=== PATIENT | female | born 1935 | race Caucasian/White ===

== ENCOUNTER 2017-12-28 09:06 | Inpatient (IN) | payer OTHER, BC ==
[2017-12-28] MEDS ORDERED: SODIUM CHLORIDE 0.9% 1000 ML INFUS.BAG IV ONE ×4 (09:48→16:56)
--- NOTE | 2017-12-28 09:48 | PDOC ---
History of Present Illness - General Chief Complaint: Pain, Acute Stated Complaint: N/V/D&ABD.PAIN Time Seen by Provider: 12/28/17 09:28 History Source: Patient Exam Limitations: No Limitations - History of Present Illness Initial Comments: 12/28/17 09:47 The patient is an 82F with a PMH of pancreatitis and bradycardia (s/p pacemaker ) who presents to the ER with complaints of nausea, vomiting, and diarrhea. The patient states that she's had nausea, vomiting, and diarrhea since this morning. She felt in her normal state of health this morning, had her cup of coffee, then had 4-5 episodes of non-bloody, non-watery bowel movements of normal consistency. She also had nausea and NBNB vomiting. She admits to abdominal pain which is suprapubic, sharp/pressure in nature, nonradiating, without dysuria or hematuria. Past History - Past Medical History Allergies/Adverse Reactions: Allergies Allergy/AdvReac Type Severity Reaction Status Date / Time No Known Allergies Allergy Verified 12/28/17 09:09 Home Medications: Ambulatory Orders Aspirin [ASA -] 81 mg PO DAILY 12/28/17 Lisinopril 10 mg PO DAILY 12/28/17 Acetaminophen [Tylenol .Regular Strength -] 650 mg PO Q6H PRN tablet 12/31/17 Ciprofloxacin [Cipro -] 500 mg PO BID 5 Days #10 tablet 12/31/17 Lisinopril [Prinivil] 10 mg PO DAILY tablet 12/31/17 Ondansetron [Zofran -] 8 mg PO Q8H PRN #30 tablet 12/31/17 Ranitidine [Zantac -] 150 mg PO DAILY #30 tablet 12/31/17 - Suicide/Smoking/Psychosocial Hx Smoking History: Former smoker Have you smoked in the past 12 months: No Information on smoking cessation initiated: No Review of Systems - Review of Systems Able to Perform ROS?: Yes Comments:: 12/28/17 10:29 GENERAL/CONSTITUTIONAL: Positive for chills. No fever. No weakness. HEAD, EYES, EARS, NOSE AND THROAT: No change in vision. No ear pain or discharge. No sore throat. CARDIOVASCULAR: No chest pain, palpitations, or lightheadedness. RESPIRATORY: No cough, wheezing, shortness of breath, or hemoptysis. GASTROINTESTINAL: Positive for nausea, vomiting, diarrhea, and abdominal pain. No constipation. GENITOURINARY: No dysuria, frequency, hematuria, or change in urination. MUSCULOSKELETAL: No joint or muscle swelling or pain. No neck or back pain. SKIN: No rash or lesions. NEUROLOGIC: No headache, numbness, tingling, weakness, loss of consciousness, or change in strength/sensation. ENDOCRINE: No increased thirst. No abnormal weight change. HEMATOLOGIC/LYMPHATIC: No anemia, easy bleeding, or history of blood clots. ALLERGIC/IMMUNOLOGIC: No hives or skin allergy. Is the patient limited Guamanian proficient: No *Physical Exam - Vital Signs Last Vital Signs Temp Pulse Resp BP Pulse Ox 97.6 F 56 L 17 118/43 100 12/28/17 09:09 12/28/17 09:09 12/28/17 09:09 12/28/17 09:09 12/28/17 09:09 - Physical Exam Comments: 12/28/17 10:29 GENERAL: Well developed, well nourished. Awake and alert. No acute distress. HEENT: Normocephalic, atraumatic. Hearing grossly normal. Moist mucous membranes. PERRLA, EOMI. No conjunctival pallor. Sclera are non-icteric. NECK: Supple. Full ROM. CARDIOVASCULAR: Regular rate and rhythm. No murmurs, rubs, or gallops. PULMONARY: No evidence of respiratory distress. Lungs clear to auscultation bilaterally. No wheezing, rales or rhonchi. ABDOMINAL: Soft. Tender to deep palpation in suprapubic region. Non-distended. No rebound or guarding. GENITOURINARY: No CVA tenderness bilaterally. MUSCULOSKELETAL: Normal range of motion at all joints. No bony deformities or tenderness. EXTREMITIES: No cyanosis. No clubbing. No edema. No calf tenderness or swelling. SKIN: Warm and dry. Normal capillary refill. No rashes. No jaundice. NEUROLOGICAL: Alert, awake, appropriate. Cranial nerves 2-12 intact. Normal speech. Gait is normal without ataxia. PSYCHIATRIC: Cooperative. Good eye contact. Appropriate mood and affect. Heart Score/ECG Review #1 ECG reviewed & interpreted by me at: 10:53 General ECG Interpretation: Sinus Rhythm, Normal Rate, Normal Intervals, No acute ischemic changes Compared to previous ECG there are: No significant change 12/28/17 11:02 Sinus rhythm w/ atrial paced rhythm Vent rate 56 HI 192 QRS 84 QTc 407 No ED Treatment Course - LABORATORY CBC & Chemistry Diagram: 12/30/17 06:57 12/30/17 06:57 Medical Decision Making - Medical Decision Making 12/28/17 10:30 The patient is an 82F with a PMH of pancreatitis who presents to the ER with acute onset nausea, vomiting, diarrhea. The pt's son endorses that the patient drinks at least 2 glasses of wine/day but the patient denies any epigastric pain and states that this does not feel like her pancreatitis. I will r/o ACS with EKG. Will give fluids and zofran after EKG done to ensure no prolonged QT. Pending labs and EKG. 12/28/17 12:42 Lipase is 476. I am concerned for pancreatitis even though it is not 3X normal limit. Pt has hx of pancreatitis and can have limited lipase elevation 2/2 to pancreatic burnout. I have discussed the patient with Dr. Trujillo who recommends an abdominal US prior to admission. Order placed. Pending US. 12/28/17 17:36 U/S negative. Will admit to hospitalist, pending call back x 2. 12/28/17 17:47 I have endorsed the patient to [facility] for admission under Dr. Harkins. *DC/Admit/Observation/Transfer Diagnosis at time of Disposition: Pancreatitis Qualifiers: Pancreatitis type: unspecified pancreatitis type Acute pancreatitis complication: unspecified - Discharge Dispostion Disposition: HOME Condition at time of disposition: Stable Decision to Admit order: Yes - Prescriptions - Referrals - Patient Instructions - Post Discharge Activity
[2017-12-28 10:23] LABS: BASO % 0.3 % (0-2.0); HEMATOCRIT 35.9 % (32.4-45.2); HEMOGLOBIN 11.9 GM/dL (10.7-15.3); LYMPH % 14.1 % (8-40); MCH 31.9 pg (25.7-33.7); MCHC 33.2 g/dl (32.0-36.0); MEAN CELL VOLUME 96.1 fl (80-96); MEAN PLT VOLUME 8.4 fl (7.5-11.1); MONO % 5.4 % (3.8-10.2); NEUT % 79.2 % (42.8-82.8); PLATELET COUNT 176 K/MM3 (134-434); RBC 3.74 M/mm3 (3.60-5.2); RDW 12.8 % (11.6-15.6); WHITE BLOOD COUNT 11.4 K/mm3 (4.0-10.0)
[2017-12-28 10:43] LABS: ALBUMIN 4.2 g/dl (3.4-5.0); ANION GAP 8 (8-16); BLOOD UREA NITROGEN 29 mg/dL (7-18); CALCIUM 9.9 mg/dL (8.5-10.1); CHLORIDE 111 mmol/L (98-107); CO2 25 mmol/L (21-32); GLUCOSE,RANDOM 149 mg/dL (74-106); POTASSIUM 4.6 mmol/L (3.5-5.1); SODIUM 144 mmol/L (136-145)
[2017-12-28 10:49] LABS: ALK PHOS 76 U/L (45-117); BILIRUBIN,TOTAL 0.6 mg/dL (0.2-1.0); CREATININE 1.4 mg/dL (0.55-1.02); SGOT/AST 25 U/L (15-37); SGPT/ALT 23 U/L (12-78); TOT PROT 7.5 g/dl (6.4-8.2)
[2017-12-28 10:50] LABS: LIPASE 476 U/L (73-393)
--- NOTE | 2017-12-28 12:08 | PDOC ---
Attending Attestation - Resident Resident Name: Martínez Pablo - ED Attending Attestation I have performed the following: I have examined & evaluated the patient, The case was reviewed & discussed with the resident, I agree w/resident's findings & plan - HPI HPI: 12/28/17 12:05 82y/o F h/o pancreatitis, likely etoh induced, p/w abd pain, n/v/d typical of past pancreatitis. no f/c, has likely had increased etoh intake of late. 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 VSS, no peritoneal findings on exam. labs notable for wbc 11.4, Cr 1.4 from baseline 1, lipase 490. ivf, anti-emetic, pain control admission Heart Score/ECG Review #1 ECG reviewed & interpreted by me at: 10:43 General ECG Interpretation: Sinus Rhythm (APCs noted), Normal Rate (56), Normal Intervals (qtc 407), No acute ischemic changes
[2017-12-28 13:04] LABS: URINE APPEARANCE CLEAR; URINE BILIRUBIN NEGATIVE (<2.0 mg/dL); URINE COLOR DKYELLOW; URINE GLUCOSE (UA) NEGATIVE (NEGATIVE); URINE KETONE NEGATIVE (NEGATIVE); URINE LEUK ESTERASE NEGATIVE (NEGATIVE); URINE NITRITE NEGATIVE (NEGATIVE); URINE PROTEIN NEGATIVE (NEGATIVE)
--- NOTE | 2017-12-28 16:29 | EKG ---
Test Reason : Blood Pressure : / mmHG Vent. Rate : 056 BPM Atrial Rate : 056 BPM P-R Int : 192 ms QRS Dur : 084 ms QT Int : 422 ms P-R-T Axes : 091 053 050 degrees QTc Int : 407 ms SINUS BRADYCARDIA PREMATURE ATRIAL COMPLEXES Confirmed by RADHA DEJESUS MD ([id number]) on 12/28/2017 4:29:03 PM Referred By: Confirmed By:RADHA DEJESUS MD
[2017-12-28] MEDS ORDERED: ACETAMINOPHEN 1000 MG/100 ML VIAL (NON FORMULARY) IVPB ONE (16:56)
[2017-12-28] MEDS ORDERED: ACETAMINOPHEN INJECTION 100 ML IVPB ONE (17:03)
--- NOTE | 2017-12-28 18:10 | HP ---
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 PT awoke in her normal fashion, had some coffee and was getting ready to go to [facility] when she vomiting 5 times. No blood noted. She then had palpitations and called her family who brought her to the ED. PT denies fever, chills, sob, diarrhea, chest pain. She recently moved back from [place] in March. No changes to her diet. History Source: Patient Limitations to Obtaining History: No Limitations - Past Medical History Cardiovascular: Yes: HTN - Past Surgical History Past Surgical History: Yes: Permanent Pacemaker - Smoking History Smoking history: Former smoker Have you smoked in the past 12 months: No - Alcohol/Substance Use Hx Alcohol Use: Yes (occasional wine ) History of Substance Use: reports: None - Social History Usual Living Arrangement: Yes: Alone ADL: Independent History of Recent Travel: No Home Medications - Allergies Allergies/Adverse Reactions: Allergies Allergy/AdvReac Type Severity Reaction Status Date / Time No Known Allergies Allergy Verified 12/28/17 09:09 Review of Systems - Review of Systems Constitutional: reports: No Symptoms Eyes: reports: No Symptoms HENT: reports: No Symptoms Neck: reports: No Symptoms Cardiovascular: reports: No Symptoms Respiratory: reports: No Symptoms Gastrointestinal: reports: Abdominal Pain Genitourinary: reports: No Symptoms Musculoskeletal: reports: No Symptoms Integumentary: reports: No Symptoms Neurological: reports: No Symptoms Endocrine: reports: No Symptoms Hematology/Lymphatic: reports: No Symptoms Psychiatric: reports: No Symptoms Physical Examination Vital Signs: Vital Signs Temperature 97.6 F 12/28/17 09:09 Pulse Rate 56 L 12/28/17 09:09 Respiratory Rate 17 12/28/17 09:09 Blood Pressure 118/43 12/28/17 09:09 O2 Sat by Pulse Oximetry (%) 100 12/28/17 09:09 Constitutional: Yes: No Distress Eyes: Yes: Conjunctiva Clear HENT: Yes: Atraumatic Neck: Yes: Supple Cardiovascular: Yes: Regular Rate and Rhythm, Bradycardia Respiratory: Yes: Regular, CTA Bilaterally Gastrointestinal: Yes: Normal Bowel Sounds, Soft, Tenderness (lower abdominal tenderness to palpation and without) Renal/: Yes: WNL Extremities: Yes: WNL Edema: No Peripheral Pulses WNL: Yes Neurological: Yes: Alert, Oriented, Cran Nerves II-XII Intact Psychiatric: Yes: Alert, Oriented Labs: CBC, BMP 12/28/17 10:15 12/28/17 10:15 Imaging - Results Chest X-ray: Report Reviewed, Image Reviewed EKG: Report Reviewed (sinus bradycardia w/ pac) Other: Report Reviewed (us shows no cholelithiasis, acute gillian or biliary duct dilation) Problem List - Problems (1) HTN (hypertension) Code(s): I10 - ESSENTIAL (PRIMARY) HYPERTENSION (2) Bradycardia Code(s): R00.1 - BRADYCARDIA, UNSPECIFIED (3) Pancreatitis Code(s): K85.90 - ACUTE PANCREATITIS WITHOUT NECROSIS OR INFECTION, UNSP Qualifiers: Chronicity: acute Pancreatitis type: unspecified pancreatitis type Acute pancreatitis complication: unspecified Qualified Code(s): K85.90 - Acute pancreatitis without necrosis or infection, unspecified Assessment/Plan Assessment: 82 year old female with pmhx of htn, bradycardia s/p ppm presented with vomiting and abdominal pain Plan: 1. Acute pancreatitis - Continue IVF - Repeat Lipase in AM - If worsens obtain CTAP - NPO - Morphine prn pain 2. HTN - Hold lisinopril 10mg 3. bradycardia - s/p ppm - Asymptomatic - Monitor vitals 4. DVT ppx - Heparin sq Visit type - Emergency Visit Emergency Visit: Yes Care time: The patient presented to the Emergency Department on the above date and was hospitalized for further evaluation of their emergent condition. - New Patient This patient is new to me today: Yes Date on this admission: 12/28/17 - Critical Care Critical Care patient: No Hospitalist Screening - Colonoscopy Questionnaire Colonoscopy Questionnaire: Colonoscopy Questionnaire - Patient: 50 - 75 years old and never had a screening colonoscopy: Unknown History of colon or rectal polyps, or CA: Unknown History of IBD, Crohn's disease or UC: Unknown History of abdominal radiation therapy as a child: Unknown - Relative: 1 with colon or rectal CA, or polyps at age 60 or younger: Unknown Colon or rectal CA diagnosed at age 45 or younger: Unknown Multiple relatives with colon or rectal CA: Unknown - Outcome: Screening Result: Negative Screen
[2017-12-28] MEDS: SODIUM CHLORIDE 1,000 ML IV SCH ×2 (18:20→22:01)
[2017-12-28] MEDS ORDERED: morphine CARPU-JECT 2 MG/1 ML DISP.SYRIN ONE (19:08)
[2017-12-28] MEDS: morphine SULFATE 4 MG/ML VIAL IVPUSH PRN (19:11)
[2017-12-28] MEDS: HEPARIN NA (PORCINE) 5,000 UNITS/ML 1ML VIAL SQ SCH (22:01)
[2017-12-28 23:44] VITALS: BMI 26.3
[2017-12-29] MEDS: morphine SULFATE 4 MG/ML VIAL IVPUSH PRN ×2 (00:26→09:09)
[2017-12-29 07:49] LABS: CHLORIDE 115 mmol/L (98-107); POTASSIUM 3.8 mmol/L (3.5-5.1); SODIUM 144 mmol/L (136-145)
[2017-12-29 07:53] LABS: BASO % 0.2 % (0-2.0); EOS % 0.1 % (0-4.5); HEMATOCRIT 30.1 % (32.4-45.2); MCH 31.6 pg (25.7-33.7); MCHC 33.4 g/dl (32.0-36.0); MEAN CELL VOLUME 94.6 fl (80-96); MEAN PLT VOLUME 9.1 fl (7.5-11.1); MONO % 8.3 % (3.8-10.2); NEUT % 70.4 % (42.8-82.8); PLATELET COUNT 170 K/MM3 (134-434); RBC 3.18 M/mm3 (3.60-5.2); RDW 12.8 % (11.6-15.6); WHITE BLOOD COUNT 11.1 K/mm3 (4.0-10.0)
[2017-12-29 07:56] LABS: ALK PHOS 44 U/L (45-117); ANION GAP 6 (8-16); BILIRUBIN,TOTAL 0.5 mg/dL (0.2-1.0); BLOOD UREA NITROGEN 18 mg/dL (7-18); CALCIUM 7.5 mg/dL (8.5-10.1); CO2 23 mmol/L (21-32); CREATININE 0.9 mg/dL (0.55-1.02); GLUCOSE,RANDOM 114 mg/dL (74-106); LIPASE 112 U/L (73-393); SGOT/AST 16 U/L (15-37); SGPT/ALT 16 U/L (12-78); TOT PROT 5.4 g/dl (6.4-8.2)
[2017-12-29] MEDS: SODIUM CHLORIDE 1,000 ML IV SCH ×2 (09:09→19:31)
[2017-12-29] MEDS: HEPARIN NA (PORCINE) 5,000 UNITS/ML 1ML VIAL SQ SCH ×2 (09:09→22:03)
--- NOTE | 2017-12-29 11:36 | PN ---
Progress Note, Physician Chief Complaint: Feels improved mild epigastric pain History of Present Illness: HTN, Pancreatitis , Pacemaker present with 2 days H//o nausea, vomiting and diarrhea with epigastric pain w/u shows acute pancreatitis. - Current Medication List Current Medications: Active Medications Heparin Sodium (Porcine) (Heparin -) 5,000 unit SQ BID [facility] Last Admin: 12/29/17 09:09 Dose: 5,000 unit Sodium Chloride (Normal Saline -) 1,000 mls @ 83 mls/hr IV ASDIR TARSHA Last Admin: 12/29/17 09:09 Dose: 83 mls/hr Morphine Sulfate (Morphine Sulfate) 1 mg IVPUSH Q4H PRN PRN Reason: PAIN LEVEL 1-5 Last Admin: 12/29/17 09:09 Dose: 1 mg - Objective Vital Signs: Vital Signs Temperature 99.4 F 12/29/17 05:37 Pulse Rate 58 L 12/29/17 05:37 Respiratory Rate 18 12/29/17 05:37 Blood Pressure 139/57 12/29/17 05:37 O2 Sat by Pulse Oximetry (%) 98 12/29/17 02:16 Elderly F comfortable mild epigastric pain HEENT: mm moist no anemia, no jvd, eomi NECK: No JVD, No Bruit CHEST: Minimal Basal crepts CVS: S1S2 IR no m/g/r ABD : No Distention, Mild tender Bs + EXT: B/L LE Edema VISUAL ARTS TEACHER: AOx3 non focal Labs: CBC, BMP 12/29/17 06:00 12/29/17 06:00 Problem List - Problems (1) Pancreatitis Assessment/Plan: Mild abd ultrasound normal , now improved advance Po intake Code(s): K85.90 - ACUTE PANCREATITIS WITHOUT NECROSIS OR INFECTION, UNSP Qualifiers: Pancreatitis type: unspecified pancreatitis type Acute pancreatitis complication: unspecified (2) HTN (hypertension) Assessment/Plan: Well controlled cont all home meds Code(s): I10 - ESSENTIAL (PRIMARY) HYPERTENSION (3) Diarrhea Assessment/Plan: Resolved CBC stable Code(s): R19.7 - DIARRHEA, UNSPECIFIED (4) Nausea and vomiting Assessment/Plan: Resolved cont Zofran and PPI PRN Code(s): R11.2 - NAUSEA WITH VOMITING, UNSPECIFIED (5) Bradycardia Assessment/Plan: S/P Pacemaker Code(s): R00.1 - BRADYCARDIA, UNSPECIFIED
[2017-12-29] MEDS ORDERED: ONDANSETRON 4 MG/2 ML VIAL IVPUSH PRN (11:57)
[2017-12-29] MEDS: PANTOPRAZOLE SODIUM 40 MG VIAL IVPUSH SCH (14:02)
--- NOTE | 2017-12-29 15:51 | CON.GI ---
Consult Consult Specialty:: Gastroenterology Referred by:: Dr. Harkins Reason for Consultation:: Abdominal pain, vomiting and diarrhea - History of Present Illness Chief Complaint: Abrupt onset abdominal pain with vomitnig and diarrhea yesterday morning. History of Present Illness: 82F developed periumbilical pain with vomiting and diarrhea about an hour after eating a piece of toast and coffee yesterday morning. The pain has resolved. Her sonogram is unremarkable. NO gallstones. Her lipase was elevated to >400 but LFTs are WNL. She tells me that she had an episode of pancreatitis in [place] in 2016. She does not recall the etiology. She does drink wine about twice a week. She also describes having GI bleeding on 2016 in [place] that led to the transfusion of 3 units of PRBCs and to upper and lower endoscopies. The bleeding was attributed to a medication which she cannot name. She denies seeing blood in her vomitus or diarrhea. She denies any FH of malignancy. She tells me that she was diagnosed with hemachromatosis that led to phlebotomies in the past. Her daughter and brother have hemochromatosis. Another brother had esophageal cancer. She believes that she had polyps removed during colonoscopy remotely but not n 2016. - History Source History Provided By: Patient Limitations to Obtaining History: No Limitations - Past Medical History Cardio/Vascular: Yes: HTN, Other (PPM placed for bradycardia) Gastrointestinal: Yes: GI Bleed (2016 attributed to a drug. Had transfusions, EGD and colonoscopy), Pancreatitis, Other (colon polyps remotely) Reproductive: Yes: Fibroids (s/p TAHBSO- vaginal) Heme/Onc: Yes: Hemochromatosis - Past Surgical History Past Surgical History: Yes: Cataract Removal, Hysterectomy (transvaginal TAHBSO for fibroids), Permanent Pacemaker - Alcohol/Substance Use Hx Alcohol Use: Yes (occasional wine ) History of Substance Use: reports: None - Smoking History Smoking history: Former smoker Have you smoked in the past 12 months: No If you are a former smoker, when did you quit?: 40 years ago - Social History Usual Living Arrangement: Alone ADL: Independent Occupation: former therapy asst for disabled Place of : Other ([place]) Came to [place]year[place] in her 20's History of Recent Travel: No Home Medications - Allergies Allergies/Adverse Reactions: Allergies Allergy/AdvReac Type Severity Reaction Status Date / Time No Known Allergies Allergy Verified 12/28/17 09:09 - Home Medications Home Medications: Ambulatory Orders Aspirin [ASA -] 81 mg PO DAILY 12/28/17 Lisinopril 10 mg PO DAILY 12/28/17 Family Disease History - Family Disease History Family Disease History: CA: Brother (esophageal cancer, hemochromatosis), Other : Father ( 83 CHF), Mother ( 92 - had pernicious anemia), Daughter ( hemochromatosis) Review of Systems - Review of Systems Constitutional: reports: Weakness Eyes: reports: No Symptoms HENT: reports: No Symptoms Neck: reports: No Symptoms Cardiovascular: reports: No Symptoms Respiratory: reports: No Symptoms Gastrointestinal: reports: Abdominal Pain, Diarrhea, Vomiting Genitourinary: reports: No Symptoms Musculoskeletal: reports: No Symptoms Physical Exam-GI Vital Signs: Vital Signs Temperature 98 F 12/29/17 14:20 Pulse Rate 65 12/29/17 14:20 Respiratory Rate 20 12/29/17 14:20 Blood Pressure 143/60 12/29/17 14:20 O2 Sat by Pulse Oximetry (%) 98 12/29/17 09:00 CBC,CMP WBC 11.1 K/mm3 (4.0-10.0) H 12/29/17 06:00 RBC 3.18 M/mm3 (3.60-5.2) L 12/29/17 06:00 Hgb 10.0 GM/dL (10.7-15.3) L D 12/29/17 06:00 Hct 30.1 % (32.4-45.2) L D 12/29/17 06:00 MCV 94.6 fl (80-96) 12/29/17 06:00 MCH 31.6 pg (25.7-33.7) 12/29/17 06:00 MCHC 33.4 g/dl (32.0-36.0) 12/29/17 06:00 RDW 12.8 % (11.6-15.6) 12/29/17 06:00 Plt Count 170 K/MM3 (134-434) 12/29/17 06:00 MPV 9.1 fl (7.5-11.1) 12/29/17 06:00 Neutrophils % 70.4 % (42.8-82.8) 12/29/17 06:00 Lymphocytes % 21.0 % (8-40) D 12/29/17 06:00 Monocytes % 8.3 % (3.8-10.2) 12/29/17 06:00 Eosinophils % 0.1 % (0-4.5) D 12/29/17 06:00 Basophils % 0.2 % (0-2.0) 12/29/17 06:00 Nucleated RBC % 0 % (0-0) 12/29/17 06:00 Sodium 144 mmol/L (136-145) 12/29/17 06:00 Potassium 3.8 mmol/L (3.5-5.1) 12/29/17 06:00 Chloride 115 mmol/L (98-107) H 12/29/17 06:00 Carbon Dioxide 23 mmol/L (21-32) 12/29/17 06:00 Anion Gap 6 (8-16) L 12/29/17 06:00 BUN 18 mg/dL (7-18) 12/29/17 06:00 Creatinine 0.9 mg/dL (0.55-1.02) 12/29/17 06:00 Creat Clearance w eGFR 59.65 (>60) 12/29/17 06:00 Random Glucose 114 mg/dL (74-106) H 12/29/17 06:00 Calcium 7.5 mg/dL (8.5-10.1) L 12/29/17 06:00 Total Bilirubin 0.5 mg/dL (0.2-1.0) 12/29/17 06:00 AST 16 U/L (15-37) 12/29/17 06:00 ALT 16 U/L (12-78) 12/29/17 06:00 Alkaline Phosphatase 44 U/L (45-117) L 12/29/17 06:00 Total Protein 5.4 g/dl (6.4-8.2) L 12/29/17 06:00 Albumin 3.0 g/dl (3.4-5.0) L 12/29/17 06:00 Lipase 112 U/L (73-393) 12/29/17 06:00 Current Medications Generic Name Dose Route Start Last Admin Trade Name Freq PRN Reason Stop Dose Admin Aspirin 81 mg 12/30/17 10:00 Asa - PO DAILY TARSHA Heparin Sodium (Porcine) 5,000 unit 12/28/17 22:00 12/29/17 09:09 Heparin - SQ 5,000 unit BID TARSHA Administration Sodium Chloride 1,000 mls @ 83 mls/hr 12/28/17 18:30 12/29/17 09:09 Normal Saline - IV 83 mls/hr ASDIR TARSHA Administration Lisinopril 10 mg 12/30/17 10:00 Prinivil PO DAILY TARSHA Ondansetron HCl 4 mg 12/29/17 11:57 Zofran Injection IVPUSH Q6H PRN NAUSEA Pantoprazole Sodium 40 mg 12/29/17 12:15 12/29/17 14:02 Protonix Iv IVPUSH 40 mg DAILY TARSHA Administration Constitutional: Yes: Calm Eyes: Yes: Conjunctiva Clear HENT: Yes: Atraumatic Neck: Yes: Trachea Midline Cardiovascular: Yes: Regular Rate and Rhythm (with left sided PPM), Murmur ( early RAMESH at base) Respiratory: Yes: CTA Bilaterally Gastrointestinal Inspection: Yes: Distention ...Auscultate: Yes: Normoactive Bowel Sounds ...Palpate: Yes: Soft, Other (nontender) ...Percussion: Yes: Tympanitic ...Rectal Exam: Yes: Guaiac Positive (brown soft but guaiac positive stool) Edema: No Peripheral Pulses WNL: Yes Neurological: Yes: Alert, Oriented Labs: CBC, BMP 12/29/17 06:00 12/29/17 06:00 Imaging - Results Ultrasound: Report Reviewed (Rocio Renee Name: [facility] DEPARTMENT OF RADIOLOGY Phys: Martínez Pablo RESIDENT : 1935 Age: 82 Sex: F [facility] Acct: [id number] Loc: [address] Exam Date: 12/28/17 Status: [place] [address] Unit Number: [id number] EXAM#: TYPE/EXAM: RESULT: [id number] US/ABDOMEN US INDICATION: Epigastric pain. TECHNIQUE: Real-time grayscale and color Doppler sonogram of the abdomen was performed by the technologist. Spectral Doppler was utilized to evaluate the portal vein. Images are submitted for review. COMPARISON: None available. FINDINGS: The liver is normal size measuring 16.5 cm in length with normal hepatic echotexture. No discrete hepatic mass identified. The portal vein is patent, where imaged, with hepatopedal flow. The gallbladder is not pathologically distended. No evidence of cholelithiasis, gallbladder wall thickening or pericholecystic fluid. There is no evidence of intrahepatic or extrahepatic biliary ductal dilatation. A proximally extrahepatic bile duct measures 3 mm in diameter. The visualized portions of the pancreas are grossly unremarkable. The spleen is small size measuring 5.2 x 6.0 x 3.9 cm, otherwise unremarkable. The kidneys are normal size with normal cortical echotexture. The right kidney measures 9.4 cm and the left kidney measures 9.3 cm in length. No hydronephrosis or shadowing intrarenal calculus identified. CT is more sensitive in detecting small renal calculi. The visualized portions of the abdominal aorta are normal caliber with calcific atherosclerosis. The intrahepatic IVC is patent. No free fluid identified in the right upper quadrant of the abdomen. IMPRESSION: No evidence of cholelithiasis, acute cholecystitis or biliary ductal dilatation. Reported By: Clarissa Sanchez DO 12/28/17 1626 Martínez Pablo Technologist: Kwabena Kaur Transcribed Date/Time: 12/28/171625 Polysomnographic Technician: Clarissa Sanchez DO Printed Date/Time: By: Signed by: Clarissa Sanchez Signed on: 28-Dec-2017 16:26) Problem List - Problems (1) Abdominal pain Assessment/Plan: The constellation of N/V and diarrhea with rapid resolution is more suggestive of an acute viral gastroenteritis than pancreatitis but given her past h/o pancreatitis and regular alcohol usage chronic pancreatitis with a flare cannot be excluded. Will order CT scan to look for evidence of chromic pancreatitis such as calcificatyion and to exclude a pseudocyst. This will also provide a better screening for a liver neoplasm given her history of hemochromatosis. I will stop her morphine as her pain has resolved and advance her diet. Code(s): R10.9 - UNSPECIFIED ABDOMINAL PAIN (2) Nausea and vomiting Code(s): R11.2 - NAUSEA WITH VOMITING, UNSPECIFIED (3) Diarrhea Code(s): R19.7 - DIARRHEA, UNSPECIFIED (4) Pancreatitis Code(s): K85.90 - ACUTE PANCREATITIS WITHOUT NECROSIS OR INFECTION, UNSP Qualifiers: Pancreatitis type: unspecified pancreatitis type Acute pancreatitis complication: unspecified (5) GI bleed Assessment/Plan: Jill has occult bleeding that may reflect anal irritation from her diarrhea. She describes having had EGD and colonoscopy as recently as 2016 but unfortunately cannot soccer coach specifics. Would empirically treat with a PPI to protect against aspirin induced erosions and ulcers. I gave her my business card to followup as an outpatient for possible repeat endoscopies after obtaining her [place] records. If her Hb continues to drop may need to undertake this during this hospitalization. Code(s): K92.2 - GASTROINTESTINAL HEMORRHAGE, UNSPECIFIED
[2017-12-29] MEDS ORDERED: ACETAMINOPHEN 325 MG TABLET (FP) PO PRN (17:40)
[2017-12-30 08:02] LABS: BASO % 0.3 % (0-2.0); EOS % 1.2 % (0-4.5); HEMATOCRIT 28.3 % (32.4-45.2); HEMOGLOBIN 9.5 GM/dL (10.7-15.3); LYMPH % 22.6 % (8-40); MCH 31.7 pg (25.7-33.7); MCHC 33.4 g/dl (32.0-36.0); MEAN CELL VOLUME 94.7 fl (80-96); MONO % 10.6 % (3.8-10.2); NEUT % 65.3 % (42.8-82.8); PLATELET COUNT 131 K/MM3 (134-434); RBC 2.99 M/mm3 (3.60-5.2); RDW 12.9 % (11.6-15.6); WHITE BLOOD COUNT 11.3 K/mm3 (4.0-10.0)
[2017-12-30 08:24] LABS: CHLORIDE 113 mmol/L (98-107); POTASSIUM 3.5 mmol/L (3.5-5.1); SODIUM 144 mmol/L (136-145)
[2017-12-30 08:49] LABS: ALBUMIN 2.8 g/dl (3.4-5.0); ALK PHOS 45 U/L (45-117); ANION GAP 9 (8-16); BILIRUBIN,TOTAL 0.4 mg/dL (0.2-1.0); BLOOD UREA NITROGEN 12 mg/dL (7-18); CALCIUM 7.6 mg/dL (8.5-10.1); CO2 22 mmol/L (21-32); CREATININE 0.8 mg/dL (0.55-1.02); GLUCOSE,RANDOM 84 mg/dL (74-106); LIPASE 135 U/L (73-393); SGOT/AST 14 U/L (15-37); SGPT/ALT 14 U/L (12-78); TOT PROT 5.2 g/dl (6.4-8.2)
[2017-12-30] MEDS: LISINOPRIL 10 MG TABLET (FP) PO SCH (10:33)
[2017-12-30] MEDS: ASPIRIN 81 MG CHEWABLE TABLETS PO SCH (10:33)
[2017-12-30] MEDS: PANTOPRAZOLE SODIUM 40 MG VIAL IVPUSH SCH (10:33)
[2017-12-30] MEDS: HEPARIN NA (PORCINE) 5,000 UNITS/ML 1ML VIAL SQ SCH ×2 (10:33→21:43)
--- NOTE | 2017-12-30 15:01 | PN ---
Progress Note, Physician Chief Complaint: Tolerating PO mild lower abd pain History of Present Illness: HTN, Pancreatitis , Pacemaker present with 2 days H//o nausea, vomiting and diarrhea with epigastric pain w/u shows acute pancreatitis. tolerating PO awaiting CT abdomen - Current Medication List Current Medications: Active Medications Acetaminophen (Tylenol -) 650 mg PO Q6H PRN PRN Reason: PAIN LEVEL 1-5 Last Admin: 12/29/17 22:02 Dose: 650 mg Aspirin (Asa -) 81 mg PO DAILY [facility] Last Admin: 12/30/17 10:33 Dose: 81 mg Heparin Sodium (Porcine) (Heparin -) 5,000 unit SQ BID [facility] Last Admin: 12/30/17 10:33 Dose: 5,000 unit Sodium Chloride (Normal Saline -) 1,000 mls @ 83 mls/hr IV ASDIR [facility] Last Admin: 12/29/17 19:31 Dose: Not Given Lisinopril (Prinivil) 10 mg PO DAILY [facility] Last Admin: 12/30/17 10:33 Dose: 10 mg Ondansetron HCl (Zofran Injection) 4 mg IVPUSH Q6H PRN PRN Reason: NAUSEA Pantoprazole Sodium (Protonix Iv) 40 mg IVPUSH DAILY [facility] Last Admin: 12/30/17 10:33 Dose: 40 mg - Objective Vital Signs: Vital Signs Temperature 98 F 12/30/17 09:00 Pulse Rate 59 L 12/30/17 09:00 Respiratory Rate 16 12/30/17 09:00 Blood Pressure 118/67 12/30/17 09:00 O2 Sat by Pulse Oximetry (%) 99 12/30/17 09:00 Elderly F comfortable mild epigastric pain HEENT: mm moist no anemia, no jvd, eomi NECK: No JVD, No Bruit CHEST: Minimal Basal crepts CVS: S1S2 IR no m/g/r ABD : No Distention, Mild tender Bs + EXT: B/L LE Edema [employer] COORDINATOR: AOx3 non focal Labs: CBC, BMP 12/30/17 06:57 12/30/17 06:57 - ....Imaging Ultrasound: Report Reviewed (No CBD stone) Problem List - Problems (1) Pancreatitis Assessment/Plan: Mild abd ultrasound normal , now improved advance Po intake awaiting CT scan abdomen. Code(s): K85.90 - ACUTE PANCREATITIS WITHOUT NECROSIS OR INFECTION, UNSP Qualifiers: Pancreatitis type: unspecified pancreatitis type Acute pancreatitis complication: unspecified (2) HTN (hypertension) Assessment/Plan: Well controlled cont all home meds Code(s): I10 - ESSENTIAL (PRIMARY) HYPERTENSION (3) Diarrhea Assessment/Plan: Resolved CBC stable Code(s): R19.7 - DIARRHEA, UNSPECIFIED (4) Nausea and vomiting Assessment/Plan: Resolved cont Zofran and PPI PRN Code(s): R11.2 - NAUSEA WITH VOMITING, UNSPECIFIED (5) Bradycardia Assessment/Plan: S/P Pacemaker Code(s): R00.1 - BRADYCARDIA, UNSPECIFIED (6) Colitis Assessment/Plan: Ct shows collitis of Transverse colon will start on Po Ciprofloxacoin 500 mg BID as patient has elevated TWBC. Code(s): K52.9 - NONINFECTIVE GASTROENTERITIS AND COLITIS, UNSPECIFIED (7) SHERRY (iron deficiency anemia) Assessment/Plan: Patient has SHERRY needs further evaluation as out patient stool occult blood -ve reported by GI consult. Code(s): D50.9 - IRON DEFICIENCY ANEMIA, UNSPECIFIED
[2017-12-31 09:31] VITALS: BP 141/62; PULSE 52; TEMP 98
[2017-12-31] MEDS: ASPIRIN 81 MG CHEWABLE TABLETS PO SCH (10:57)
[2017-12-31] MEDS: HEPARIN NA (PORCINE) 5,000 UNITS/ML 1ML VIAL SQ SCH (10:57)
[2017-12-31] MEDS: PANTOPRAZOLE SODIUM 40 MG VIAL IVPUSH SCH (10:57)
[2017-12-31] MEDS: LISINOPRIL 10 MG TABLET (FP) PO SCH (10:57)
[2017-12-31] MEDS ORDERED: CIPROFLOXACIN 500 MG TABLET (RESTRICTED TO ID) PO SCH (11:30)
[2017-12-31] MEDS ORDERED: ONDANSETRON 4 MG TABLET PO PRN (11:37)
--- NOTE | 2017-12-31 11:43 | DS ---
Physical Examination Vital Signs: Vital Signs Temperature 98 F 12/31/17 09:29 Pulse Rate 52 L 12/31/17 09:29 Respiratory Rate 16 12/31/17 09:29 Blood Pressure 141/62 12/31/17 09:29 O2 Sat by Pulse Oximetry (%) 97 12/30/17 20:59 Elderly F feels comfortable no c/o nausea, vomiting or diarrhea HEENT: Mm moist, no anemia, PERRLA EOMI NECK: No JVD No Bruit CHEST: CTA B/L CVS; S1S2 R ABD: Soft mild colonic tenderness Bs + EXT: No edema feet,, no calf tenderness [employer] HELPER; AOx3 non focal Labs: CBC, BMP 12/30/17 06:57 12/30/17 06:57 Discharge Summary Reason For Visit: PANCREATITIS, Collitis Current Active Problems Abdominal pain (Acute) Diarrhea (Acute) Collitis HTN (hypertension) (Acute) Nausea and vomiting (Acute) Pancreatitis (Acute) Hospital Course: HTN, Pancreatitis , Pacemaker present with 2 days H//o nausea, vomiting and diarrhea with epigastric pain w/u shows acute pancreatitis. tolerating PO, CT abdomen shows transverse colitis, abd ultrasound shows no gall stone normal CBD , blood w/u shows -ve tumor markers and SHERRY, stool occult blood -ve, patient needs F/U with GI for EGD and possible collitis. Condition: Stable - Instructions Diet, Activity, Other Instructions: as advised advance as tolerates Referrals: Gabe Ramos MD [Staff Physician] - 2 Weeks Pierre Harkins MD [Primary Care Provider] - 1 Week - Home Medications Comprehensive Discharge Medication List: Ambulatory Orders Aspirin [ASA -] 81 mg PO DAILY 12/28/17 Lisinopril 10 mg PO DAILY 12/28/17 Acetaminophen [Tylenol .Regular Strength -] 650 mg PO Q6H PRN tablet 12/31/17 Ciprofloxacin [Cipro -] 500 mg PO BID 5 Days #10 tablet 12/31/17 Lisinopril [Prinivil] 10 mg PO DAILY tablet 12/31/17 Ranitidine [Zantac -] 150 mg PO DAILY #30 tablet 12/31/17
[2018-01-01] MEDS ORDERED: RANITIDINE HCL 150 MG TABLET (FP) PO SCH (10:00)
== END 2017-12-31 13:38 | disposition home or self-care (01) | DRG 391 ==
LOC: JER 09:06 → JERBED 17:47 → J7W 21:43
PROVIDERS: ADMIT Internal Medicine; ATTEND Internal Medicine
DX: K52.9 Noninfective gastroenteritis and colitis, unspecified (principal); K85.90 Acute pancreatitis without necrosis or infection, unspecified; R00.1 Bradycardia, unspecified; R10.9 Unspecified abdominal pain; I10 Essential (primary) hypertension; R11.2 Nausea with vomiting, unspecified; D50.9 Iron deficiency anemia, unspecified; Z95.0 Presence of cardiac pacemaker
CPT/HCPCS: 36415; 71045-TC-FY; 74177-TC; 76700-TC; 80048; 80053; 81003; 82105; 82150; 82728; 83540; 83550; 83690; 85025; 85044; 86140; 86301; 87086; 93005; 93010; 99282-25; J0131; J1644; J7030

== ENCOUNTER 2019-01-31 20:48 | Emergency (ER) | payer OTHER, BC ==
--- NOTE | 2019-01-31 21:05 | PDOC ---
Rapid Medical Evaluation Chief Complaint: Pain, Acute Time Seen by Provider: 01/31/19 21:01 Medical Evaluation: Allergies Allergy/AdvReac Type Severity Reaction Status Date / Time No Known Allergies Allergy Verified 12/28/17 09:09 01/31/19 21:01 I have performed a brief in-person evaluation of this patient. The patient presents with a chief complaint of: left lower leg pain x 2-3 days, worsening. Has had intermittant pain and discoloration for many yrs, but was concerned about a clot - no history of same Pertinent physical exam findings: mild tenderness and discoloration , no swelling , no homans. I have ordered the following: nothing The patient will proceed to the ED for further evaluation. Discharge Disposition - Diagnosis Leg pain - Referrals - Patient Instructions - Post Discharge Activity
--- NOTE | 2019-01-31 21:13 | PDOC ---
History of Present Illness - General Chief Complaint: Pain, Acute Stated Complaint: L/LEG/PAIN Time Seen by Provider: 01/31/19 21:01 - History of Present Illness Initial Comments: 01/31/19 21:25 The patient is an 83 year old female with a PMH of bradycardia (s/p PPM) who presents to our ED c/o RLE pain. Pain is sharp, intermittent and has been occurring for 1 year. Denies any h/o known trauma. No increased edema, ambulatory. States pain became particularly severe earlier today prompting her visit to our ED because she was scared she had a clot. Evaluated by her PMD on Monday and was told all of her labs were normal. Surgical: Hysterectomy, PPM placement Social: former smoker PMD: Dr. Mark Harkins M.D. Past History - Past Medical History Allergies/Adverse Reactions: Allergies Allergy/AdvReac Type Severity Reaction Status Date / Time No Known Allergies Allergy Verified 12/28/17 09:09 Home Medications: Ambulatory Orders Aspirin [ASA -] 81 mg PO DAILY 12/28/17 Lisinopril 10 mg PO DAILY 12/28/17 Acetaminophen [Tylenol .Regular Strength -] 650 mg PO Q6H PRN tablet 12/31/17 Ciprofloxacin [Cipro -] 500 mg PO BID 5 Days #10 tablet 12/31/17 Lisinopril [Prinivil] 10 mg PO DAILY tablet 12/31/17 Ondansetron [Zofran -] 8 mg PO Q8H PRN #30 tablet 12/31/17 Ranitidine [Zantac -] 150 mg PO DAILY #30 tablet 12/31/17 COPD: No HTN: Yes Other medical history: anemia - Suicide/Smoking/Psychosocial Hx Smoking History: Former smoker Have you smoked in the past 12 months: No If you are a former smoker, when did you quit?: 40 years ago Information on smoking cessation initiated: No Hx Alcohol Use: Yes (occasional wine ) Substance Use Type: None Review of Systems - Review of Systems Constitutional: No: Chills, Fever HEENTM: No: Recent change in vision Respiratory: No: Cough, Shortness of Breath Cardiac (ROS): No: Chest Pain, Lightheadedness, Palpitations, Syncope ABD/GI: No: Constipated, Diarrhea, Nausea, Vomiting : No: Burning, Dysuria *Physical Exam - Vital Signs Last Vital Signs Temp Pulse Resp BP Pulse Ox 98.5 F 63 18 124/68 97 01/31/19 21:04 01/31/19 21:04 01/31/19 21:04 01/31/19 21:04 01/31/19 21:04 - Physical Exam Comments: 01/31/19 21:30 Awake, alert, well appearing/NAD CV: S1, S2, RRR Respiratory: CLTA B/L, no wheeze/crackle Abdomen: soft, non-tender, (+) bowel sounds Extremity: 2+ DP pulse, no edema, moves all 4 extremities w/o pain Neuro: A&O x3, CN II-XII intact, normal sensation Medical Decision Making - Medical Decision Making 01/31/19 21:26 83 year old female with LLE pain that has been occuring intermittently for 1 year VS unremarkable No lower extremity edema, negative Illly's sign Will obtain RLE Duplex to r/o DVT. Reassess. Likely disposition is home. 01/31/19 22:37 U/S negative for DVT. Will discharge home with return precautions. 01/31/19 22:42 Patient reassessed @ bedside. Ambulatory and improved. Counseled on importance of PMD evaluation for [facility] pain management. I discussed the physical exam findings, ancillary test results and final diagnoses with the patient. I answered all of the patient's questions. The patient was satisfied with the care received and felt comfortable with the discharge plan and treatment plan. The patient will return to the Emergency Department with any new, persistent or worsening symptoms. *DC/Admit/Observation/Transfer Diagnosis at time of Disposition: Leg pain - Discharge Dispostion Disposition: HOME Condition at time of disposition: Good Decision to Admit order: No - Referrals Referrals: Pierre Harkins MD [Primary Care Provider] - - Patient Instructions Printed Discharge Instructions: DI for Leg Pain Additional Instructions: You can take Motrin (up to 3200 mg daily) alternating with Tylenol (up to 4000 mg daily) for your pain for 1 week. Follow up with your primary care doctor in the next 1 week. Your care is not complete until you are evaluated by your primary care doctor. Return to the Emergency Department for any new/worsening/concerning symptoms. - Post Discharge Activity
[2019-01-31 21:14] VITALS: BP 124/68; PULSE 63; TEMP 98.5; BMI 23.9
[2019-01-31] MEDS ORDERED: ACETAMINOPHEN 500 MG TABLET (FP) PO ONE (21:25)
[2019-01-31] MEDS ORDERED: ACETAMINOPHEN 325 MG TABLET (FP) ONE (21:31)
--- NOTE | 2019-01-31 22:31 | PDOC ---
Documentation entered by Sb Ocampo SCRIBE, acting as scribe for Lizzeth Judge DO. Lizzeth Judge DO: This documentation has been prepared by the Terrence willoughby Daniel, SCRIBE, under my direction and personally reviewed by me in its entirety. I confirm that the documentation accurately reflects all work, treatment, procedures, and medical decision making performed by me. Attending Attestation - Resident Resident Name: Cat Oden - ED Attending Attestation I have performed the following: I have examined & evaluated the patient, The case was reviewed & discussed with the resident, I agree w/resident's findings & plan, Exceptions are as noted - HPI HPI: 01/31/19 21:46 The patient is an 83 year old female with a past medical history of anemia and bradycardia (s/p pacemaker) here today for evaluation of left lower extremity pain. The patient reports that she has had chronic left lower leg pain with discoloration for a while and came in today due to the pain worsening. She states it is worse with activity, constantly feels warm, and notes intermittent edema. Patient also reports shortness of breath but states that this chronic and has not changed. Patient denies headache, lightheadedness. Denies fever, chills. Denies chest pain. Denies nausea, vomiting, diarrhea, abdominal pain. Allergies: NKA PCP: Pierre Harkins - Physicial Exam PE: 01/31/19 22:24 Constitutional: Awake, alert, oriented. No acute distress. Head: Normocephalic. Atraumatic Eyes: PERRL. EOMI. Conjunctivae are not pale. ENT: Mucous membranes are moist and intact. Posterior pharynx without exudates or erythema. Uvula midline. Neck: Supple. Full ROM. No lymphadenopathy. Cardiovascular: Regular rate. Regular rhythm. S1, S2 regular. Distal pulses are 2+ and symmetric. Pulmonary/Chest: No evidence of respiratory distress. Clear to auscultation bilaterally No wheezing, rales or rhonchi. Abdominal: Soft and non-distended. There is no tenderness. No rebound, guarding or rigidity. No organomegaly. No palpable masses. Good bowel sounds. Back: No CVA tenderness. Musculoskeletal: No edema. No cyanosis. No clubbing. No C, T, or L spine tenderness. Full range of motion in all extremities. No calf tenderness. Radial /pedal pulses are intact and 2+ bilaterally Skin: Skin is warm and dry. No petechiae. No purpura. Neurological: Alert and oriented to person, place, and time. Cranial nerves II -XII are grossly intact. Normal speech. Strength is grossly symmetric. No sensory deficits. Psychiatric: Good eye contact. Normal interaction, affect and behavior. - Medical Decision Making 01/31/19 22:29 a/p: 83yo female with 1 year hx of L calf pain - concerned she may have a blood clot -pt states her mother had a blood clot in her L leg -pt denies swelling, no redness, no fevers/chills -no cp/sob -pt states she follows with Dr. Harkins and has been intermittently taking aleve for the pain -had pain today - pt states she took an aleve, which helped her pain -no rashes -no back pain -states intermittent sharp pain, sometimes at rest and sometimes when walking - no signs of claudication - no blue or purple coloration, foot and leg never become cold -will send for duplex ultrasound -will monitor and reassess 01/31/19 22:31 no dvt visualized stable for dc to home and follow up with PMD for further evaluation of the L leg pain
== END 2019-01-31 22:50 | disposition home or self-care (01) ==
LOC: JER 20:48
DX: M79.662 Pain in left lower leg (principal); I10 Essential (primary) hypertension; Z86.2 Personal history of diseases of the blood and blood-forming organs and certain disorders involving the immune mechanism; R00.1 Bradycardia, unspecified; Z95.0 Presence of cardiac pacemaker
CPT/HCPCS: 93971-TC; 99281-25

== ENCOUNTER 2019-04-03 09:37 | Observation (INO) | payer OTHER, BC ==
[2019-04-03 10:40] LABS: BASO % 0.5 % (0-2.0); EOS % 1.9 % (0-4.5); HEMOGLOBIN 11.1 GM/dL (10.7-15.3); LYMPH % 35.2 % (8-40); MCH 31.9 pg (25.7-33.7); MCHC 33.5 g/dl (32.0-36.0); MEAN CELL VOLUME 95.2 fl (80-96); MEAN PLT VOLUME 8.4 fl (7.5-11.1); MONO % 11.3 % (3.8-10.2); NEUT % 51.1 % (42.8-82.8); PLATELET COUNT 221 K/MM3 (134-434); RBC 3.47 M/mm3 (3.60-5.2); WHITE BLOOD COUNT 7.7 K/mm3 (4.0-10.0)
[2019-04-03 11:12] LABS: INR 1.04 (0.83-1.09); PROTHROMBIN TIME (PATIENT) 12.3 SEC (9.7-13.0)
[2019-04-03 11:17] LABS: ALBUMIN 3.8 g/dl (3.4-5.0); ALK PHOS 52 U/L (45-117); ANION GAP 9 MMOL/L (8-16); BILIRUBIN,TOTAL 0.3 mg/dL (0.2-1); BLOOD UREA NITROGEN 39.6 mg/dL (7-18); CALCIUM 9.4 mg/dL (8.5-10.1); CHLORIDE 109 mmol/L (98-107); CO2 21 mmol/L (21-32); CREATININE 1.5 mg/dL (0.55-1.3); GLUCOSE,RANDOM 97 mg/dL (74-106); N-TERMINAL BNP 2405.4 pg/ml (5-450); POTASSIUM 4.4 mmol/L (3.5-5.1); SGOT/AST 16 U/L (15-37); SGPT/ALT 18 U/L (13-61); SODIUM 140 mmol/L (136-145); TOT PROT 6.7 g/dl (6.4-8.2)
--- NOTE | 2019-04-03 11:34 | PDOC ---
Documentation entered by Fabienne Oquendo SCRIBE, acting as scribe for Fidel Couch MD. Fidel Couch MD: This documentation has been prepared by the Jere willoughby Xhesika, SCRIBE, under my direction and personally reviewed by me in its entirety. I confirm that the documentation accurately reflects all work, treatment, procedures, and medical decision making performed by me. History of Present Illness - General Chief Complaint: Shortness of Breath Stated Complaint: SHORTNESS OF BREATHE Time Seen by Provider: 04/03/19 09:53 History Source: Patient Exam Limitations: No Limitations - History of Present Illness Initial Comments: 04/03/19 10:23 The patient is an 83 year old female with a past medical history of anemia, HTN , pAfib, and PPM who presents to the ED with 1 day of SOB. The patient reports the SOB began suddenly while at rest after she woke up yesterday, is associated with L calf pain and worsened with walking. The patient notes she is traveling this weekend and her family was worried, which prompted her arrival to the ED. Patient notes she experienced similar symptoms years back when she lived in [place]. The patient denies recent travels, long car rides or recent injuries. She denies associated sxs. The patient denies chest pain, headache and dizziness. Denies fever, chills, cough, nausea, vomiting, diarrhea and constipation. Denies dysuria, frequency, urgency and hematuria. Allergies: NKDA PCP: Pierre Harkins Field Services Manager: Salomón Kline Past History - Past Medical History Allergies/Adverse Reactions: Allergies Allergy/AdvReac Type Severity Reaction Status Date / Time No Known Allergies Allergy Verified 04/03/19 09:43 Home Medications: Ambulatory Orders Aspirin [ASA -] 81 mg PO DAILY 12/28/17 Lisinopril [Prinivil] 10 mg PO DAILY tablet 12/31/17 B-Complex with Vitamin C [Super B Complex-Vitamin C] 1 each PO DAILY 04/03/19 Diltiazem HCl [Diltiazem 24Hr Cd] 180 mg PO DAILY 04/03/19 Multivitamins [Tab-A-Vit -] 1 tab PO DAILY 04/03/19 COPD: No HTN: Yes - Surgical History Cardiac Surgery: Yes (pacemaker) - Suicide/Smoking/Psychosocial Hx Smoking History: Never smoked Have you smoked in the past 12 months: No If you are a former smoker, when did you quit?: 40 years ago Hx Alcohol Use: Yes (occasional wine ) Substance Use Type: None Review of Systems - Review of Systems Able to Perform ROS?: Yes Comments:: 04/03/19 10:24 GENERAL/CONSTITUTIONAL: No fever or chills. No weakness. HEAD, EYES, EARS, NOSE AND THROAT: No change in vision. No ear pain or discharge. No sore throat. GASTROINTESTINAL: No nausea, vomiting, diarrhea or constipation. GENITOURINARY: No dysuria, frequency, or change in urination. CARDIOVASCULAR: No chest pain. (+) shortness of breath. RESPIRATORY: No cough, wheezing, or hemoptysis. MUSCULOSKELETAL: No joint or muscle swelling. No neck or back pain. (+) L calf pain. SKIN: No rash NEUROLOGIC: No headache, vertigo, loss of consciousness, or change in strength/ sensation. ENDOCRINE: No increased thirst. No abnormal weight change. HEMATOLOGIC/LYMPHATIC: No anemia, easy bleeding, or history of blood clots. ALLERGIC/IMMUNOLOGIC: No hives or skin allergy. *Physical Exam - Vital Signs Last Vital Signs Temp Pulse Resp BP Pulse Ox 97.3 F L 63 18 101/46 L 98 04/03/19 09:41 04/03/19 09:41 04/03/19 09:41 04/03/19 09:41 04/03/19 09:41 - Physical Exam Comments: 04/03/19 10:25 GENERAL: Awake, alert, and fully oriented, in no acute distress HEAD: No signs of trauma EYES: PERRLA, EOMI, sclera anicteric, conjunctiva clear ENT: Auricles normal inspection, hearing grossly normal, nares patent, oropharynx clear without exudates. Moist mucosa NECK: Normal ROM, supple, no lymphadenopathy, JVD, or masses LUNGS: Breath sounds equal, clear to auscultation bilaterally. No wheezes, and no crackles HEART: Regular rate and rhythm, normal S1 and S2, no murmurs, rubs or gallops ABDOMEN: Soft, nontender, normoactive bowel sounds. No guarding, no rebound. No masses EXTREMITIES: Normal range of motion, no edema. No clubbing or cyanosis. No cords , erythema. (+) mild L calf tenderness. BACK: No midline spinal tenderness in cervical/thoracic/lumbar region NEUROLOGICAL: Normal speech, cranial nerves intact, negative pronator drift, 5/ 5 strength in all 4 extremities, normal sensation to light touch in all 4 extremities, normal cerebellar exam, normal gait, normal reflexes and tone SKIN: Warm, Dry, normal turgor, no rashes or lesions noted. Heart Score/ECG Review - History History: Slightly suspicious - Electrocardiogram EKG: Non specific repolarization disturbance - Age Age: >/= 65 - Risk Factors Based on the list above the patient has:: >/=3 risk factors or Hx atherosclerotic disease - Troponin Troponin: </= normal limit - Score Heart Score - Total: 5 #1 04/03/19 11:30 Sinus arrhythmia, rate 67. Normal axis. No ST elevations but T-wave inversions in V3 to V5 as well as biphasic T-wave in V2. When compared to EKG from 2017, T-wave changes are all new. ED Treatment Course - LABORATORY CBC & Chemistry Diagram: 04/03/19 10:25 04/03/19 10:25 - ADDITIONAL ORDERS Additional order review: Laboratory Results 04/03/19 04/03/19 04/03/19 10:25 10:25 10:25 PT with INR 12.30 INR 1.04 PTT (Actin FS) D-Dimer 1086 H Magnesium 2.2 04/03/19 10:25 PT with INR INR PTT (Actin FS) 27.2 D-Dimer Magnesium 04/03/19 10:25 RBC 3.47 L MCV 95.2 MCHC 33.5 RDW 13.0 MPV 8.4 Neutrophils % 51.1 D Lymphocytes % 35.2 D Monocytes % 11.3 H Eosinophils % 1.9 Basophils % 0.5 - RADIOLOGY Radiology Studies Ordered: Category Date Time Status CHEST CTA [CT] Stat CT Scan 04/03/19 11:15 Ordered CHEST X-RAY PORTABLE* [RAD] Stat Radiology 04/03/19 10:17 Completed DUPLEX VASCUL US-1 LEG [US] Stat Ultrasound 04/03/19 10:19 Ordered Medical Decision Making - Medical Decision Making 04/03/19 11:31 83yo F hx HTN, pAF, PPM presents to the ED with 1 day of SOB and L calf pain Vitals wnl Exam with L calf ttp, mostly clear lungs EKG concerning for Wellens changes DDx includes ACS vs PE vs CHF vs MSK pain Plan for labs, including dimer, possible CTA Case/EKG discussed with Dr. Jiménez (pt's personal computer specialist) who will see pt in ED shortly 04/03/19 14:46 CTA negative for PE BNP elevated but pt not fluid overloaded on exam Pt seen by Dr. Jiménez, EKG changes are concerning, he will see if he has a more recent EKG to correlate Plan to admit pt for ACS vs CHF Case discussed with Dr. Gore, pt accepted for admission to Dr. Olguin service Case discussed in detail with admitting physician including history, physical exam and ancillary studies. Admitting physician has assumed care for the patient, will follow all pending diagnostics and will complete the evaluation and treatment. *DC/Admit/Observation/Transfer Diagnosis at time of Disposition: Abnormal EKG - Discharge Dispostion Condition at time of disposition: Stable - Referrals - Patient Instructions - Post Discharge Activity - Attestations Physician Attestion: 04/03/19 14:50 I, Dr. Fidel Couch MD, attest that this document has been prepared under my direction and personally reviewed by me in its entirety. I further attest, that it accurately reflects all work, treatment, procedures and medical decision -making performed by me.
--- NOTE | 2019-04-03 12:14 | EKG ---
Test Reason : Blood Pressure : / mmHG Vent. Rate : 067 BPM Atrial Rate : 067 BPM P-R Int : 162 ms QRS Dur : 078 ms QT Int : 402 ms P-R-T Axes : -02 063 199 degrees QTc Int : 424 ms SINUS RHYTHM WITH SINUS ARRHYTHMIA WITH OCCASIONAL PREMATURE VENTRICULAR COMPLEXES ABNORMAL ECG WHEN COMPARED WITH ECG OF 28-DEC-2017 10:43, PREMATURE VENTRICULAR COMPLEXES ARE NOW PRESENT PREMATURE ATRIAL COMPLEXES ARE NO LONGER PRESENT NONSPECIFIC T WAVE ABNORMALITY, WORSE IN INFERIOR LEADS T WAVE INVERSION NOW EVIDENT IN ANTEROLATERAL LEADS Confirmed by JEFERSON JUAREZ, CATHY ([id number]) on 04/03/2019 12:13:40 PM Referred By: Confirmed By:CATHY GOVEA MD
[2019-04-03] MEDS ORDERED: ASPIRIN 325 MG TABLET PO ONE (14:39)
[2019-04-03] MEDS ORDERED: ASPIRIN 81 MG CHEWABLE TABLETS ONE (15:58)
--- NOTE | 2019-04-03 16:00 | PN ---
Teaching Attending Note Name of Resident: Jaydon Gore ATTENDING PHYSICIAN STATEMENT I saw and evaluated the patient. I reviewed the resident's note and discussed the case with the resident. I agree with the resident's findings and plan as documented with exceptions below. SUBJECTIVE: 83 yof with PMHx of Atrial fibrillation, s/p PPM, H/o DVT on coumadin, GI bleed in 2016 when taken off AC, anemia, hemochromatosis (s/p prior phlebotomies), HTN , ?CAD came in with left calf pain and dyspnea today. Denies any chest pain, palpitations, dizziness, fever, cough, sputum, abdominal or urinary symptoms. her symptoms have currently resolved. She reports getting dental work in progression over last 6 weeks, with poor oral intake, has been trying to puree her food. Never had any chest pain. Had CTA chest and Lower extremity Duplex in ED, that were negative. Her EKG showed anterolateral T wave inversions, new from prior EKG in 12/2017. Never had any chest pain. Has long standing h/o exertional dyspnea attributed to her anemia which is difficult to treat given her hemochromatosis No orthopnea/PND/leg swelling or concerns otherwise. OBJECTIVE: Vital Signs Period Temp Pulse Resp BP Sys/Muro Pulse Ox Last 24 Hr 97.3 F 63 18 101/46 98-99 Intake & Output 03/31/19 04/01/19 04/02/19 04/03/19 23:59 23:59 23:59 23:59 Weight 136 lb GENERAL: Awake, alert, and fully oriented, in no acute distress. HEAD: Normal with no signs of trauma. EYES: Pupils equal, round and reactive to light, extraocular movements intact, sclera anicteric, conjunctiva clear. No lid lag. EARS, NOSE, THROAT: Ears normal, nares patent, oropharynx clear without exudates. Mildy dry mucous membrane NECK: Normal range of motion, supple without lymphadenopathy, JVD, or masses. LUNGS: Breath sounds equal, clear to auscultation bilaterally. No wheezes, and no crackles. No accessory muscle use. HEART: Regular rate and rhythm, normal S1 and S2 ABDOMEN: Soft, nontender, not distended, normoactive bowel sounds, no guarding, no rebound, no masses. MUSCULOSKELETAL: Normal range of motion at all joints. No bony deformities or tenderness. No CVA tenderness. UPPER EXTREMITIES: 2+ pulses, warm, well-perfused. No cyanosis. No clubbing. No peripheral edema. LOWER EXTREMITIES: 2+ pulses, warm, well-perfused. No calf tenderness. No peripheral edema. varicosities present NEUROLOGICAL: AAox3, power 5/5, sensation intact and symmetric to light touch, EOMI, PERRL, tongue midline, Cranial nerves II-XII intact. Normal speech. gait deferred PSYCHIATRIC: Cooperative. Good eye contact. Appropriate mood and affect. SKIN: Warm, dry, normal turgor, no rashes or lesions noted, normal capillary refill. Home Medications Medication Instructions Recorded Aspirin [ASA -] 81 mg PO DAILY 12/28/17 Lisinopril [Prinivil] 10 mg PO DAILY tablet 12/31/17 B-Complex with Vitamin C [Super B 1 each PO DAILY 04/03/19 Complex-Vitamin C] Diltiazem HCl [Diltiazem 24Hr Cd] 180 mg PO DAILY 04/03/19 Multivitamins [Tab-A-Vit -] 1 tab PO DAILY 04/03/19 Laboratory Results - last 24 hr 04/03/19 04/03/19 04/03/19 10:25 10:25 10:25 WBC 7.7 RBC 3.47 L Hgb 11.1 Hct 33.0 D MCV 95.2 MCH 31.9 MCHC 33.5 RDW 13.0 Plt Count 221 D MPV 8.4 Absolute Neuts (auto) 3.9 Neutrophils % 51.1 D Lymphocytes % 35.2 D Monocytes % 11.3 H Eosinophils % 1.9 Basophils % 0.5 Nucleated RBC % 0 PT with INR INR PTT (Actin FS) 27.2 D-Dimer Sodium 140 Potassium 4.4 Chloride 109 H Carbon Dioxide 21 Anion Gap 9 BUN 39.6 H Creatinine 1.5 H Est GFR (CKD-EPI)AfAm 36.44 Est GFR (CKD-EPI)NonAf 31.44 Random Glucose 97 Calcium 9.4 Magnesium Total Bilirubin 0.3 AST 16 ALT 18 Alkaline Phosphatase 52 Troponin I < 0.02 B-Natriuretic Peptide 2405.4 H Total Protein 6.7 Albumin 3.8 04/03/19 04/03/19 04/03/19 10:25 10:25 10:25 WBC RBC Hgb Hct MCV MCH MCHC RDW Plt Count MPV Absolute Neuts (auto) Neutrophils % Lymphocytes % Monocytes % Eosinophils % Basophils % Nucleated RBC % PT with INR 12.30 INR 1.04 PTT (Actin FS) D-Dimer 1086 H Sodium Potassium Chloride Carbon Dioxide Anion Gap BUN Creatinine Est GFR (CKD-EPI)AfAm Est GFR (CKD-EPI)NonAf Random Glucose Calcium Magnesium 2.2 Total Bilirubin AST ALT Alkaline Phosphatase Troponin I B-Natriuretic Peptide Total Protein Albumin EKG NSR T inversion/biphasic T waves in V1-V4 CTA chest/Duplex lower extremity results reviewed ASSESSMENT AND PLAN: 83 yof with PMHx of Atrial fibrillation, s/p PPM, H/o DVT prior on coumadin, GI bleed in 2016 when taken off AC, anemia, hemochromatosis (s/p prior phlebotomies ), HTN, ?CAD admitted with transient dyspnea/calf pain and abnormal EKG, MANUEL. -Dyspnea/Calf pain, Pulmonary Embolism ruled, r/o ACS, low suspicion -Abnormal EKG -MANUEL, suspect hypovolumia in the setting of poor oral intake from recent dental work -Atrial fibrillation, paroxysmal -s/p PPM -DVT off AC -h/o GI bleed 2015 -Anemia -Hemochromatosis -HTN -?CAD Plan: telemetry, cycle troponin. Continue ASA/cardizem. 2D echo Cardiology consulted, patient seen by Dr Jiménez, will follow up on recent EKG from the office Repeat EKG. No clinical concerns for CHF currently Gentle hydration. Hold ACEi, monitor renal function. DVTPPX heparin Dispo pending clinical course Discussed with patient in detail, all questions answered Total admit time 65 min.
[2019-04-03] MEDS ORDERED: SODIUM CHLORIDE 1,000 ML IV SCH (16:30)
--- NOTE | 2019-04-03 17:07 | HP ---
CHIEF COMPLAINT: SOB PCP: Dr. Harkins Cardio: Dr. Jiménez HISTORY OF PRESENT ILLNESS: History aided by son at bedside. Pt is an 83 y/o F with PMH HTN, pAF, s/p PPM, Anemia, GIB (4 years ago), DVT ( 10 years ago), Hemochromatosis who had SOB of abrupt onset and which was short lived. Per son, pt was on a trip with some family members and was very anxious at the time that she had her symptoms. She experience some cramping of the left calf at that time, as well. She had a similar episode on day also during a family trip with the same group of relatives and also accompanied by anxiety. Pt states she is able to walk without difficulty, and has no symptoms with change in position. She denies any chest pain during the episode or since. She currently feels well. Denies cp, sob at this time. She denies dizziness, nausea, vomiting, diarrhea, fever, and chills. Pt does state she has been having dental work over the past 6 months and has been trying to puree her diet, but denies weight loss. Of note, 10 years ago, she had a DVT, but does not recall which leg. She was placed on Coumadin for her Afib, but 4 years ago she had a GIB and has been taken off her AC. ER course was notable for: (1) Welfare Adviser 1.5, BUN 39.6, D-dimer 1086, BNP 2400 (2) EKG with new TWI in ant leads (3) Cardio consult, ASA 325 Recent Travel: denies. Has been here for the last 2 years from [place] PAST MEDICAL HISTORY: HTN, pAF, s/p PPM, Anemia, GIB (4 years ago), DVT (10 years ago), Hemochromatosis PAST SURGICAL HISTORY: hysterectomy, b/l salpingoophorectomy, L total knee Social History: Smoking: remote history social smoking Alcohol: glass of wine, nightly Drugs: denies Family History: DM, pernicious anemia Allergies No Known Allergies Allergy (Verified 04/03/19 09:43) HOME MEDICATIONS: Home Medications Medication Instructions Recorded Aspirin [ASA -] 81 mg PO DAILY 12/28/17 Lisinopril [Prinivil] 10 mg PO DAILY tablet 12/31/17 B-Complex with Vitamin C [Super B 1 each PO DAILY 04/03/19 Complex-Vitamin C] Diltiazem HCl [Diltiazem 24Hr Cd] 180 mg PO DAILY 04/03/19 Multivitamins [Tab-A-Vit -] 1 tab PO DAILY 04/03/19 REVIEW OF SYSTEMS CONSTITUTIONAL: Absent: fever, chills, diaphoresis, generalized weakness, malaise, loss of appetite, weight change HEENT: Absent: rhinorrhea, nasal congestion, throat pain, throat swelling, difficulty swallowing, mouth swelling, ear pain, eye pain, visual changes CARDIOVASCULAR: Absent: chest pain, syncope, palpitations, irregular heart rate, lightheadedness , peripheral edema RESPIRATORY: shortness of breath Absent: cough, , dyspnea with exertion, orthopnea, wheezing, stridor, hemoptysis GASTROINTESTINAL: Absent: abdominal pain, abdominal distension, nausea, vomiting, diarrhea, constipation, melena, hematochezia GENITOURINARY: Absent: dysuria, frequency, urgency, hesitancy, hematuria, flank pain, genital pain MUSCULOSKELETAL: Absent: myalgia, arthralgia, joint swelling, back pain, neck pain SKIN: Absent: rash, itching, pallor HEMATOLOGIC/IMMUNOLOGIC: Absent: easy bleeding, easy bruising, lymphadenopathy, frequent infections ENDOCRINE: Absent: unexplained weight gain, unexplained weight loss, heat intolerance, cold intolerance NEUROLOGIC: Absent: headache, focal weakness or paresthesias, dizziness, unsteady gait, seizure, mental status changes, bladder or bowel incontinence PSYCHIATRIC: Absent: anxiety, depression, suicidal or homicidal ideation, hallucinations. PHYSICAL EXAMINATION Vital Signs - 24 hr 04/03/19 04/03/19 04/03/19 09:41 09:50 16:23 Temperature 97.3 F L Pulse Rate 63 Pulse Rate [ 54 L Left Radial] Respiratory 18 Rate Blood Pressure 101/46 L Blood Pressure 111/58 L [Right Arm] O2 Sat by Pulse 98 99 98 Oximetry (%) Gen: AAO x3, NAD, comfortable HEENT: NCAT, EOMI Neck: supple, no jvd Cardio: rrr with extrasystoles, normal s1 prominent s2, midsystolic murmur 3/6 heard throughout precordium Lungs: cta b/l Abd: soft nontender, nondistended Ext: no edema 1+ pulses b/l, Quezada sign negative, equal size, no erythema Neuro: CN 2-12 intact, sensory motor grossly intact throughout Laboratory Results - last 24 hr 04/03/19 04/03/19 04/03/19 10:25 10:25 10:25 WBC 7.7 RBC 3.47 L Hgb 11.1 Hct 33.0 D MCV 95.2 MCH 31.9 MCHC 33.5 RDW 13.0 Plt Count 221 D MPV 8.4 Absolute Neuts (auto) 3.9 Neutrophils % 51.1 D Lymphocytes % 35.2 D Monocytes % 11.3 H Eosinophils % 1.9 Basophils % 0.5 Nucleated RBC % 0 PT with INR INR PTT (Actin FS) 27.2 D-Dimer Sodium 140 Potassium 4.4 Chloride 109 H Carbon Dioxide 21 Anion Gap 9 BUN 39.6 H Creatinine 1.5 H Est GFR (CKD-EPI)AfAm 36.44 Est GFR (CKD-EPI)NonAf 31.44 Random Glucose 97 Calcium 9.4 Magnesium Total Bilirubin 0.3 AST 16 ALT 18 Alkaline Phosphatase 52 Troponin I < 0.02 B-Natriuretic Peptide 2405.4 H Total Protein 6.7 Albumin 3.8 04/03/19 04/03/19 04/03/19 10:25 10:25 10:25 WBC RBC Hgb Hct MCV MCH MCHC RDW Plt Count MPV Absolute Neuts (auto) Neutrophils % Lymphocytes % Monocytes % Eosinophils % Basophils % Nucleated RBC % PT with INR 12.30 INR 1.04 PTT (Actin FS) D-Dimer 1086 H Sodium Potassium Chloride Carbon Dioxide Anion Gap BUN Creatinine Est GFR (CKD-EPI)AfAm Est GFR (CKD-EPI)NonAf Random Glucose Calcium Magnesium 2.2 Total Bilirubin AST ALT Alkaline Phosphatase Troponin I B-Natriuretic Peptide Total Protein Albumin ASSESSMENT/PLAN: This is a pleasant 83 y/o woman with PMH significant for AF, DVT, GIB, HTN who presented to ED with SOB. She was found to have anterior TWI on ekg, elevated d- dimer, and elevated creatinine. #SOB -r/o ACS -EKG concerning with TWI new compared to prior -Cardio consulted by ED -asymptomatic at this time -repeat EKG -trend trop -echo -ASA given in ED #MANUEL -Welfare Adviser noted 1.5 on baseline <1 -Likely prerenal with BUN 39 -likely due to decreased intake with change in diet -will hydrate and monitor BMP #AF -regular rate at this time -s/p PPM -not on AC due to prior bleed -CHADSVASC 5, Has-BLED 3 -resume Diltiazem -Cardio on board, f/u recs #HTN -resume home Lisinopril and diltiazem #h/o Anemia -presently, Hb wnl #Hemochromatosis -stable Visit type - Emergency Visit Emergency Visit: Yes ED Registration Date: 04/03/19 Care time: The patient presented to the Emergency Department on the above date and was hospitalized for further evaluation of their emergent condition. - New Patient This patient is new to me today: Yes Date on this admission: 04/03/19 - Critical Care Critical Care patient: No ATTENDING PHYSICIAN STATEMENT I saw and evaluated the patient. I reviewed the resident's note and discussed the case with the resident. I agree with the resident's findings and plan as documented. SUBJECTIVE: OBJECTIVE: ASSESSMENT AND PLAN:
[2019-04-03 22:01] VITALS: BMI 25.3
[2019-04-03] MEDS: HEPARIN NA (PORCINE) 5,000 UNITS/ML 1ML VIAL SQ SCH (22:55)
[2019-04-04 06:43] LABS: BASO % 0.6 % (0-2.0); EOS % 3.8 % (0-4.5); HEMATOCRIT 26.1 % (32.4-45.2); HEMOGLOBIN 8.8 GM/dL (10.7-15.3); LYMPH % 48.2 % (8-40); MCH 31.9 pg (25.7-33.7); MCHC 33.6 g/dl (32.0-36.0); MEAN PLT VOLUME 8.5 fl (7.5-11.1); MONO % 10.3 % (3.8-10.2); NEUT % 37.1 % (42.8-82.8); PLATELET COUNT 172 K/MM3 (134-434); RBC 2.74 M/mm3 (3.60-5.2); RDW 13.1 % (11.6-15.6); WHITE BLOOD COUNT 5.3 K/mm3 (4.0-10.0)
--- NOTE | 2019-04-04 06:43 | PN ---
Physical Exam: SUBJECTIVE: Patient seen and examined OBJECTIVE: Vital Signs Period Temp Pulse Resp BP Sys/Muro Pulse Ox Last 24 Hr 97.3 F-98.0 F 50-63 18-18 101-119/46-58 98-100 GENERAL: The patient is awake, alert, and fully oriented, in no acute distress. HEAD: Normal with no signs of trauma. EYES: PERRL, extraocular movements intact, sclera anicteric, conjunctiva clear. No ptosis. ENT: Ears normal, nares patent, oropharynx clear without exudates, moist mucous membranes. NECK: Trachea midline, full range of motion, supple. LUNGS: Breath sounds equal, clear to auscultation bilaterally, no wheezes, no crackles, no accessory muscle use. HEART: Regular rate and rhythm, S1, S2 without murmur, rub or gallop. ABDOMEN: Soft, nontender, nondistended, normoactive bowel sounds, no guarding, no rebound, no hepatosplenomegaly, no masses. EXTREMITIES: 2+ pulses, warm, well-perfused, no edema. NEUROLOGICAL: Cranial nerves II through XII grossly intact. Normal speech, gait not observed. PSYCH: Normal mood, normal affect. SKIN: Warm, dry, normal turgor, no rashes or lesions noted Laboratory Results - last 24 hr 04/03/19 04/03/19 04/03/19 10:25 10:25 10:25 WBC 7.7 RBC 3.47 L Hgb 11.1 Hct 33.0 D MCV 95.2 MCH 31.9 MCHC 33.5 RDW 13.0 Plt Count 221 D MPV 8.4 Absolute Neuts (auto) 3.9 Neutrophils % 51.1 D Lymphocytes % 35.2 D Monocytes % 11.3 H Eosinophils % 1.9 Basophils % 0.5 Nucleated RBC % 0 PT with INR INR PTT (Actin FS) 27.2 D-Dimer Sodium 140 Potassium 4.4 Chloride 109 H Carbon Dioxide 21 Anion Gap 9 BUN 39.6 H Creatinine 1.5 H Est GFR (CKD-EPI)AfAm 36.44 Est GFR (CKD-EPI)NonAf 31.44 Random Glucose 97 Calcium 9.4 Magnesium Total Bilirubin 0.3 AST 16 ALT 18 Alkaline Phosphatase 52 Troponin I < 0.02 B-Natriuretic Peptide 2405.4 H Total Protein 6.7 Albumin 3.8 04/03/19 04/03/19 04/03/19 10:25 10:25 10:25 WBC RBC Hgb Hct MCV MCH MCHC RDW Plt Count MPV Absolute Neuts (auto) Neutrophils % Lymphocytes % Monocytes % Eosinophils % Basophils % Nucleated RBC % PT with INR 12.30 INR 1.04 PTT (Actin FS) D-Dimer 1086 H Sodium Potassium Chloride Carbon Dioxide Anion Gap BUN Creatinine Est GFR (CKD-EPI)AfAm Est GFR (CKD-EPI)NonAf Random Glucose Calcium Magnesium 2.2 Total Bilirubin AST ALT Alkaline Phosphatase Troponin I B-Natriuretic Peptide Total Protein Albumin 04/03/19 17:00 WBC RBC Hgb Hct MCV MCH MCHC RDW Plt Count MPV Absolute Neuts (auto) Neutrophils % Lymphocytes % Monocytes % Eosinophils % Basophils % Nucleated RBC % PT with INR INR PTT (Actin FS) D-Dimer Sodium Potassium Chloride Carbon Dioxide Anion Gap BUN Creatinine Est GFR (CKD-EPI)AfAm Est GFR (CKD-EPI)NonAf Random Glucose Calcium Magnesium Total Bilirubin AST ALT Alkaline Phosphatase Troponin I < 0.02 B-Natriuretic Peptide Total Protein Albumin Active Medications Generic Name Dose Route Start Last Admin Trade Name Freq PRN Reason Stop Dose Admin Aspirin 81 mg 04/04/19 10:00 Asa - PO DAILY [facility] Diltiazem HCl 180 mg 04/04/19 10:00 Cardizem Cd - PO DAILY [facility] Heparin Sodium (Porcine) 5,000 unit 04/03/19 22:00 04/03/19 22:55 Heparin - SQ Not Given TID [facility] Sodium Chloride 1,000 mls @ 100 mls/hr 04/03/19 16:30 04/03/19 17:29 Normal Saline - IV 100 mls/hr ASDIR [facility] Administration Lisinopril 10 mg 04/04/19 10:00 Prinivil PO DAILY [facility] Multivitamins 1 each 04/04/19 10:00 Total B With C - PO DAILY [facility] Multivitamins/Minerals/Vitamin C 1 tab 04/04/19 10:00 Tab-A-Vit - PO DAILY [facility] Active Medications Aspirin (Asa -) 81 mg PO DAILY [facility] Diltiazem HCl (Cardizem Cd -) 180 mg PO DAILY [facility] Heparin Sodium (Porcine) (Heparin -) 5,000 unit SQ TID [facility] Last Admin: 04/03/19 22:55 Dose: Not Given Sodium Chloride (Normal Saline -) 1,000 mls @ 100 mls/hr IV ASDIR [facility] Last Admin: 04/03/19 17:29 Dose: 100 mls/hr Lisinopril (Prinivil) 10 mg PO DAILY [facility] Multivitamins (Total B With C -) 1 each PO DAILY [facility] Multivitamins/Minerals/Vitamin C (Tab-A-Vit -) 1 tab PO DAILY [facility] ASSESSMENT/PLAN: This is a pleasant 83 y/o woman with PMH significant for AF, DVT, GIB, HTN who presented to ED with SOB. She was found to have anterior TWI on ekg, elevated d- dimer, and elevated creatinine. #SOB -r/o ACS -asymptomatic at this time. Pt reportedly admitted to exertional symptoms in discussion with Dr. Jiménez. Pt may be transferred for cardiac cath. Will order lexiscan. -EKG concerning with TWI new compared to prior -repeat EKG unchanged -Cardio on board, Dr. Jiménez -trop neg x2 -echo unremarkable #MANUEL: Improving -Pot Maker initially noted 1.5 on baseline <1 -Likely prerenal with BUN 39 -likely due to decreased intake with change in diet -will hydrate and monitor BMP #AF -regular rate at this time -s/p PPM -not on AC due to prior bleed -CHADSVASC 5, Has-BLED 3 -resume Diltiazem -Cardio on board, f/u recs #HTN -resume home Lisinopril and diltiazem #h/o Anemia -initially, Hb wnl -following IV hydration, Hb dropped to 8 -Fe studies -Will need outpt GI follow up #Hemochromatosis -stable Visit type - Emergency Visit Emergency Visit: No - New Patient This patient is new to me today: No - Critical Care Critical Care patient: No ATTENDING PHYSICIAN STATEMENT I saw and evaluated the patient. I reviewed the resident's note and discussed the case with the resident. I agree with the resident's findings and plan as documented. SUBJECTIVE: OBJECTIVE: ASSESSMENT AND PLAN:
[2019-04-04 06:50] LABS: INR 1.07 (0.83-1.09); PROTHROMBIN TIME (PATIENT) 12.6 SEC (9.7-13.0)
[2019-04-04 06:53] LABS: ACTIVATED PTT 27.5 SECONDS (25.2-36.5)
[2019-04-04] MEDS: HEPARIN NA (PORCINE) 5,000 UNITS/ML 1ML VIAL SQ SCH ×2 (06:55→14:43)
[2019-04-04 07:02] LABS: ALBUMIN 3.3 g/dl (3.4-5.0); BILIRUBIN,TOTAL 0.4 mg/dL (0.2-1); BLOOD UREA NITROGEN 32.6 mg/dL (7-18); CALCIUM 8.6 mg/dL (8.5-10.1); CREATININE 1.2 mg/dL (0.55-1.3); POTASSIUM 4.2 mmol/L (3.5-5.1); TOT PROT 5.6 g/dl (6.4-8.2)
[2019-04-04] MEDS ORDERED: PT OWN MED DRAWER 7, Y5N ONE ×2 (09:10→14:24)
[2019-04-04] MEDS ORDERED: VITAMIN B COMPLEX W/C COMBO TABLET (FP) PO SCH (10:00)
[2019-04-04] MEDS ORDERED: MULTIVITAMINS (DAILY MVI) TABLET (FP) PO SCH (10:00)
[2019-04-04] MEDS ORDERED: LISINOPRIL 10 MG TABLET (FP) PO SCH (10:00)
[2019-04-04] MEDS ORDERED: ASPIRIN 81 MG CHEWABLE TABLETS PO SCH (10:00)
--- NOTE | 2019-04-04 10:32 | EKG ---
Test Reason : Blood Pressure : / mmHG Vent. Rate : 053 BPM Atrial Rate : 053 BPM P-R Int : 206 ms QRS Dur : 084 ms QT Int : 442 ms P-R-T Axes : -16 050 194 degrees QTc Int : 414 ms SINUS BRADYCARDIA T WAVE ABNORMALITY, CONSIDER ANTEROLATERAL ISCHEMIA ABNORMAL ECG WHEN COMPARED WITH ECG OF 03-APR-2019 09:48, PREMATURE VENTRICULAR COMPLEXES ARE NO LONGER PRESENT Confirmed by ANJELICA JUAREZ, RADHA ([id number]) on 04/04/2019 10:32:27 AM Referred By: Confirmed By:RADHA DEJESUS MD
--- NOTE | 2019-04-04 11:32 | ECHO ---
Name: JILL PEREZ Exam:Adult Echocardiogram Study Date: 04/04/2019 08:16 AM Age: 83 yrs Reason For Study: NEW EKG CHANGES R/O MOTION ABNORMALITIES Height: 62 in Weight: 136 lb BSA: 1.6 m2 MMode/2D Measurements & Calculations IVSd: 1.1 cm Ao root diam: 3.0 cm LVIDd: 4.5 cm LA dimension: 2.4 cm LVIDs: 3.0 cm LVPWd: 0.94 cm EDV(Teich): 93.3 ml LVOT diam: 2.1 cm ESV(Teich): 34.0 ml Doppler Measurements & Calculations MV E max panchito: 85.4 cm/sec Ao V2 max: 219.1 cm/sec MV A max panchito: 80.9 cm/sec Ao max P.2 mmHg MV E/A: 1.1 Ao V2 mean: 152.1 cm/sec MV dec time: 0.21 sec Ao mean P.5 mmHg Ao V2 VTI: 53.0 cm ESTHER(I,D): 1.8 cm2 AI P1/2t: 516.3 msec ESTHER(V,D): 1.7 cm2 AI max panchito: 389.7 cm/sec LV V1 max P.8 mmHg AI max P.8 mmHg LV V1 mean P.6 mmHg AI dec slope: 221.1 cm/sec2 LV V1 max: 109.6 cm/sec LV V1 mean: 77.6 cm/sec LV V1 VTI: 27.9 cm MR max panchito: 377.6 cm/sec SV(LVOT): 96.4 ml MR max P.0 mmHg TR max panchito: 249.8 cm/sec PA V2 max: 106.2 cm/sec TR max P.3 mmHg PA max P.5 mmHg PI end-d panchito: 71.2 cm/sec Med Peak E' Panchito: 8.1 cm/sec Med E/e': 10.6 Lat Peak E' Panchito: 8.2 cm/sec Lat E/e': 10.4 Procedure A complete two-dimensional transthoracic echocardiogram was performed (2D, M-mode, Doppler and color flow Doppler). Left Ventricle The left ventricular size, thickness and function are normal. The left ventricular ejection fraction is normal. Ejection Fraction = 60-65%. The left ventricular wall motion is normal. Right Ventricle The right ventricle is normal in size and function. There is a pacemaker lead in the right ventricle. Atria Normal left and right atrial size and function. There is a catheter/pacemaker lead seen in the right atrium. Mitral Valve There is no mitral regurgitation noted. Tricuspid Valve There is mild tricuspid regurgitation. Right ventricular systolic pressure is normal. Aortic Valve The aortic valve is trileaflet. Mild valvular aortic stenosis. Mild aortic regurgitation. Pulmonic Valve There is no pulmonic valvular regurgitation. Great Vessels The aortic root is normal size. Pericardium/Pleura There is no pericardial effusion. Interpretation Summary The left ventricular size, thickness and function are normal The right ventricle is normal in size and function. There is a pacemaker lead in the right ventricle and atrium. There is mild tricuspid regurgitation. Mild aortic regurgitation. Mild valvular aortic stenosis. MD Berhane Valencia 04/04/2019 11:31 AM
[2019-04-04 12:27] LABS: BASO % 0.7 % (0-2.0); EOS % 3.9 % (0-4.5); HEMATOCRIT 29.4 % (32.4-45.2); HEMOGLOBIN 9.7 GM/dL (10.7-15.3); LYMPH % 46.4 % (8-40); MCH 31.7 pg (25.7-33.7); MCHC 32.9 g/dl (32.0-36.0); MEAN CELL VOLUME 96.5 fl (80-96); MEAN PLT VOLUME 8.4 fl (7.5-11.1); MONO % 10.5 % (3.8-10.2); NEUT % 38.5 % (42.8-82.8); PLATELET COUNT 191 K/MM3 (134-434); RBC 3.05 M/mm3 (3.60-5.2); RDW 13.1 % (11.6-15.6); WHITE BLOOD COUNT 5.7 K/mm3 (4.0-10.0)
--- NOTE | 2019-04-04 13:34 | PN ---
Teaching Attending Note Name of Resident: Jaydon Gore ATTENDING PHYSICIAN STATEMENT I saw and evaluated the patient. I reviewed the resident's note and discussed the case with the resident. I agree with the resident's findings and plan as documented with exceptions below. SUBJECTIVE: Patient seen and examined. no further chest pain, dyspnea or concerns. Now reports long standing h/o exertional dyspnea with chest heaviness. OBJECTIVE: Vital Signs Period Temp Pulse Resp BP Sys/Muro Pulse Ox Last 24 Hr 97.6 F-98.7 F 50-59 18-20 106-125/45-59 98-100 Intake & Output 04/01/19 04/02/19 04/03/19 04/04/19 23:59 23:59 23:59 23:59 Intake Total 100 410 Balance 100 410 Weight 138 lb 9.6 oz General: sitting in bed in no acute distress neck: soft, supple, no JVd Chest; CTAB, no rales or wheezing Abdomen:Soft, NT, ND, pos bowel sounds Extremities; no edema Home Medications Medication Instructions Recorded Aspirin [ASA -] 81 mg PO DAILY 12/28/17 Lisinopril [Prinivil] 10 mg PO DAILY tablet 12/31/17 B-Complex with Vitamin C [Super B 1 each PO DAILY 04/03/19 Complex-Vitamin C] Diltiazem HCl [Diltiazem 24Hr Cd] 180 mg PO DAILY 04/03/19 Multivitamins [Tab-A-Vit -] 1 tab PO DAILY 04/03/19 Active Medications Aspirin (Asa -) 81 mg PO DAILY [facility] Last Admin: 04/04/19 09:15 Dose: 81 mg Atorvastatin Calcium (Lipitor -) 80 mg PO ONCE ONE Stop: 04/04/19 14:01 Diltiazem HCl (Cardizem Cd -) 180 mg PO DAILY [facility] Last Admin: 04/04/19 09:15 Dose: 180 mg Heparin Sodium (Porcine) (Heparin -) 5,000 unit SQ TID [facility] Last Admin: 04/04/19 06:55 Dose: Not Given Sodium Chloride (Normal Saline -) 1,000 mls @ 100 mls/hr IV ASDIR [facility] Last Admin: 04/03/19 17:29 Dose: 100 mls/hr Lisinopril (Prinivil) 10 mg PO DAILY [facility] Last Admin: 04/04/19 09:16 Dose: 10 mg Multivitamins (Total B With C -) 1 each PO DAILY [facility] Multivitamins/Minerals/Vitamin C (Tab-A-Vit -) 1 tab PO DAILY [facility] Last Admin: 04/04/19 09:15 Dose: 1 tab Laboratory Results - last 24 hr 04/03/19 04/04/19 04/04/19 17:00 05:15 05:15 WBC 5.3 RBC 2.74 L Hgb 8.8 L Hct 26.1 L D MCV 95.0 MCH 31.9 MCHC 33.6 RDW 13.1 Plt Count 172 D MPV 8.5 Absolute Neuts (auto) 2.0 Neutrophils % 37.1 L D Lymphocytes % 48.2 H D Monocytes % 10.3 H Eosinophils % 3.8 D Basophils % 0.6 Nucleated RBC % 0 PT with INR 12.60 INR 1.07 PTT (Actin FS) 27.5 Sodium Potassium Chloride Carbon Dioxide Anion Gap BUN Creatinine Est GFR (CKD-EPI)AfAm Est GFR (CKD-EPI)NonAf Random Glucose Calcium Iron TIBC Iron Saturation Unsaturated IBC Ferritin Total Bilirubin AST ALT Alkaline Phosphatase Troponin I < 0.02 Total Protein Albumin 04/04/19 04/04/19 04/04/19 05:15 10:29 10:31 WBC RBC Hgb Hct MCV MCH MCHC RDW Plt Count MPV Absolute Neuts (auto) Neutrophils % Lymphocytes % Monocytes % Eosinophils % Basophils % Nucleated RBC % PT with INR INR PTT (Actin FS) Sodium 144 Potassium 4.2 Chloride 114 H Carbon Dioxide 26 Anion Gap 4 L BUN 32.6 H Creatinine 1.2 Est GFR (CKD-EPI)AfAm 47.72 Est GFR (CKD-EPI)NonAf 41.18 Random Glucose 89 Calcium 8.6 Iron 83 87 TIBC 304 Iron Saturation 27 Unsaturated IBC 221 Ferritin 66.7 66.9 Total Bilirubin 0.4 AST 10 L ALT 16 Alkaline Phosphatase 42 L Troponin I Total Protein 5.6 L Albumin 3.3 L 04/04/19 11:50 WBC 5.7 RBC 3.05 L Hgb 9.7 L Hct 29.4 L MCV 96.5 H MCH 31.7 MCHC 32.9 RDW 13.1 Plt Count 191 MPV 8.4 Absolute Neuts (auto) 2.2 Neutrophils % 38.5 L Lymphocytes % 46.4 H Monocytes % 10.5 H Eosinophils % 3.9 Basophils % 0.7 Nucleated RBC % 0 PT with INR INR PTT (Actin FS) Sodium Potassium Chloride Carbon Dioxide Anion Gap BUN Creatinine Est GFR (CKD-EPI)AfAm Est GFR (CKD-EPI)NonAf Random Glucose Calcium Iron TIBC Iron Saturation Unsaturated IBC Ferritin Total Bilirubin AST ALT Alkaline Phosphatase Troponin I Total Protein Albumin ASSESSMENT AND PLAN: 83 yof with PMHx of Atrial fibrillation, s/p PPM, H/o DVT prior on coumadin, GI bleed in 2016 when taken off AC, anemia, hemochromatosis (s/p prior phlebotomies ), HTN, ?CAD admitted with transient dyspnea/calf pain and abnormal EKG, MANUEL. -Dyspnea/Calf pain, Pulmonary Embolism/ACS ruled out -Abnormal EKG -MANUEL, suspect hypovolumia in the setting of poor oral intake from recent dental work -Atrial fibrillation, paroxysmal -s/p PPM -DVT off AC -h/o GI bleed 2015 -Anemia -Hemochromatosis -HTN -?CAD Plan: Discussed with Dr. Jiménez. Anterolateral EKG changes new from prior. Plan for transfer to cardiac cath Continue ASA/statin/cardizem. Hold ACEi for now. H/h suspect patient was dehydrated on admission, now with hemodilution. Repeat stable, no gross evidence of bleed. Iron panel noted. dispo plan for transfer to [facility] for cardiac cath as discussed with Dr. Jiménez.
[2019-04-04] MEDS ORDERED: ATORVASTATIN CA 80 MG TABLET (FP) PO ONE (14:00)
[2019-04-04 14:43] VITALS: BP 144/53; PULSE 53; TEMP 97.7
--- NOTE | 2019-04-04 14:43 | CONS ---
CARDIOLOGY CONSULTATION DATE OF CONSULTATION: DATE OF DICTATION: 04/04/2019 CHIEF COMPLAINTS: 1. Dyspnea on minimal exertion. 2. Retrosternal, pressure-like chest discomfort. 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 Patient states that she developed sudden onset of dyspnea and anterior, pressure-like chest discomfort while she was dressing after a shower. These symptoms persisted for several minutes and abated after she stopped her activity. All during the day, she had multiple episodes which again were accompanied by minimal exertion. She decided to go to see her son, and while walking from the driveway to the front door, she had significant dyspnea and was accompanied again with anterior, pressure-like chest discomfort. Pains have been non-radiating, non-pleuritic in nature. There is no history of paroxysmal nocturnal dyspnea or orthopnea. No history of pedal edema. The following day, she again took a shower, and in the process of dressing up, developed the same symptoms, and finally decided to contact my office and was advised that she should be immediately hospitalized. Since her hospitalization, she has had no dyspnea either at rest or with exertion. No chest discomfort has been reported. There is no history of lightheadedness, dizziness, presyncope, or syncope. There is no history of diabetes mellitus or hypercholesterolemia. PAST HISTORY: As mentioned in the history of present illness. SURGICAL HISTORY: Status post left hip replacement. Status post hysterectomy for fibroid tumors. Status post permanent pacemaker. Status post bilateral cataract extraction and intraocular lens implantation. SOCIAL HISTORY: She was and remarried, and she is a . Has a son and 2 daughters who are apparently healthy. She smoked from the age of 18 and stopped when she was 68 years of age. States that she only smoked when she had a cocktail or was out with friends. She has a glass of wine with dinner. No history of excessive use of caffeine. FAMILY HISTORY: Father suddenly at the age of 86 years. He had no known medical illnesses. Mother at age 94 of natural causes. She did have pernicious anemia. She had 4 brothers and 3 sisters. One of the sisters in her 70s of complications of diabetes mellitus. One of the brothers at age 84, also related to complications of diabetes mellitus. Another brother at age 72 of carcinoma of esophagus. Her older brother had pernicious anemia and at age 85 of unknown cause. She has a brother who is 83 years of age and suffers from hemochromatosis. She has 2 living sisters; one is 90, and the other one is 88 years of age and apparently are healthy. ALLERGIES: None reported. MEDICATIONS: 1. Lisinopril 10 mg p.o. daily. 2. Heparin 5000 units subcutaneous t.i.d. 3. Diltiazem 180 mg p.o. daily. 4. Patient received normal saline 100 mL per hour. 5. Multivitamin 1 p.o. daily. REVIEW OF SYSTEMS: Constitutional: No history of chills, fever, or night sweats. No history of unintentional weight loss. HEENT: No history of headaches, diplopia, blurred vision. No history of epistaxis, hoarseness, or tinnitus. History of bilateral deafness requiring hearing aids. Cardiovascular: See history of present illness. Respiratory: No history of cough, expectoration, or hemoptysis. No history of tuberculosis. See history of present illness. Gastrointestinal: No history of recent nausea, vomiting, melena, or hematemesis. No history of abdominal pain or discomfort. No history of early satiety. No history of change in bowel habits. Endocrine: No history of polyuria or polydipsia. No history of intolerance to cold or warm weather. Neurological: No history of lightheadedness, dizziness, presyncope, or syncope. No history of seizures or focal weakness. Musculoskeletal: History of arthritis. No history of myalgias. Genitourinary: No history of dysuria, frequency, or hematuria reported. Hematological: See history of present illness. PHYSICAL EXAMINATION: General: An 83-year-old, alert female was in no distress. No pallor, cyanosis, clubbing, or jaundice. Vital Signs: Blood pressure 118/58 mmHg. Pulse 55 beats per minute and regular. Respirations 20 per minute. Oxygen saturation 99% on room air. Temperature 98.7 degrees Fahrenheit. Weight 62.868 kg. Neck: Supple. No jugular venous distention. Hepatojugular reflux was negative. Carotids were 2+. Upstrokes were normal. Faint radiation of murmur in the right carotid. No thyromegaly was appreciated. Heart: PMI was in the fifth intercostal space. No heaves or thrills. S1 and S2 were normal. Ejection systolic murmur, 2/6, was heard at the second right intercostal space, ending [id number] systole. Murmur was also heard along the left sternal border. No diastolic murmur or gallops were heard. Lungs: Clear on auscultation. Abdomen: Soft, slightly protuberant, and nontender. No hepatosplenomegaly or palpable masses were felt. Bowel sounds were active. No bruits were heard. Extremities: No calf tenderness or dependent edema. There were bilateral varicosities. There were deformities involving the toes. Pulses were equal except posterior tibial pulses could not be palpated. LABORATORY DATA: ECG of April 03, 2019, at 9:48 a.m.: Sinus rhythm with AV sequential pacemaker sensing and pacing appropriately. Occasional right premature QRS complexes which were single. RSR prime in V1 and V2 compatible with incomplete right bundle branch block. Diffuse ST and T-wave abnormalities involving the precordial leads. It was compared to an ECG done on December 28, 2017. There were ST and T-wave abnormalities noted across the precordial leads and presence of an incomplete right bundle branch block. Repeat ECG on April 04, 2019, revealed sinus bradycardia, compared to ECG of April 03, 2019. Absence of premature QRS complexes. No other significant injuries were seen. CT of the chest April 03, 2019, impression: There is no evidence of pulmonary embolus present in the main pulmonary artery and its proximal branches bilaterally. Non-enhancement of the thoracic and including abdominal aorta, limiting its evaluation, without evidence of dilatation. Biapical pleural thickening/scarring without evidence of acute lung disease. Stranding of the included portion of the left perinephric fat, likely chronic. Echocardiogram Interpretation Summary: 1. The left ventricle size, thickness, and function are normal. 2. The right ventricle is normal in size and function. 3. There is a permanent pacemaker lead in the right ventricle and atrium. 4. There is mild tricuspid regurgitation. 5. Mild aortic regurgitation. 6. Mild aortic valvular stenosis. LABORATORY DATA: April 03, 2019: Sodium 140, potassium 4.4, chloride 109, CO2 of 21 mmol/L. BUN 39.6, creatinine 1.5 mg/dL. BNP was elevated at 2405.4 pg/mL. Magnesium was 2.2 mg/dL. Normal liver function tests. Troponins were less than 0.20 on 2 occasions. LABORATORY DATA: April 04, 2019: Sodium 144, potassium 4.4, chloride 114, CO2 of 26 mmol/L. BUN 32.6, creatinine 1.2 mg/dL. CBC: April 03, 2019: WBC 7700, hemoglobin 11.1 g/dL, platelet count 221,000. Normal cell indices. Neutrophils 51.1%, lymphocytes 35.2%, monocytes 11.3%, eosinophils 1.9%, basophils 0.5%. Repeat on April 04, 2019: WBC 5300; hemoglobin dropped to 8.8 g/dL; hematocrit 26.1%; normal cell indices; platelet count 182,000. Neutrophils decreased to 37.1%. Lymphocytes were elevated at 48.2%. Monocytes 10.3%. Eosinophils 3.8%. Basophils 0.8%. D-dimer was elevated at 1086. IMPRESSION: 1. Clinical presentation and electrocardiographic findings are consistent with coronary artery disease, progressive, new-onset angina pectoris. 2. Hypertension, hypertensive cardiovascular disease, currently normotensive. 3. Elevated beta-natriuretic peptide possibly related to left ventricular failure. 4. History of anemia. Possibility of acute blood loss needs to be excluded. 5. Hemochromatosis. 6. History of paroxysmal atrial fibrillation, currently in sinus rhythm. 7. Sick sinus syndrome. 8. Status post permanent pacemaker. 9. Systolic murmur consistent with aortic valvular disease with mild aortic stenosis. 10. 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 11. History of osteoarthritis. RECOMMENDATIONS: 1. In view of recent clinical presentation and new-onset EKG changes, would suggest that patient be transferred to a tertiary care center for an early cardiac catheterization. 2. Transfer was discussed with patient's daughter and son. Indications, potential side effects/complications of the procedure were discussed and understood, and all are in agreement. 3. Primary care physician and hospitalist were informed and are in agreement for transfer. 4. Recheck BNP. 5. Stool guaiacs. 6. Atorvastatin 80 mg p.o. now. 7. If there is recurrence of chest discomfort and/or shortness of breath, patient should be placed on IV nitroglycerin and titrated. 8. Further workup to be undertaken at [facility] and is being accepted for transfer. PROGNOSIS: Guarded. TIME SPENT AT BEDSIDE: Two hours and 10 minutes. Thank you for your referral. Yours sincerely, HAROON ROMERO M.D. [place]/[id number]
--- NOTE | 2019-04-05 09:24 | DS ---
Physical Exam: SUBJECTIVE: Patient seen and examined at bedside. No events OBJECTIVE: Vital Signs Period Temp Pulse Resp BP Sys/Muro Pulse Ox Last 24 Hr 97.7 F-98.7 F 53-55 20-20 118-144/53-59 99 PHYSICAL EXAM Gen: AAO x3, NAD, comfortable HEENT: NCAT, EOMI Neck: supple, no jvd Cardio: rrr with extrasystoles, normal s1 prominent s2, midsystolic murmur 3/6 heard throughout precordium Lungs: cta b/l Abd: soft nontender, nondistended Ext: no edema 1+ pulses b/l LABS Laboratory Results - last 24 hr 04/04/19 04/04/19 04/04/19 10:29 10:31 11:12 WBC RBC Hgb Hct MCV MCH MCHC RDW Plt Count MPV Absolute Neuts (auto) Neutrophils % Lymphocytes % Monocytes % Eosinophils % Basophils % Nucleated RBC % Iron 83 87 TIBC 304 Iron Saturation 27 Unsaturated IBC 221 Transferrin 227 Ferritin 66.7 66.9 04/04/19 11:50 WBC 5.7 RBC 3.05 L Hgb 9.7 L Hct 29.4 L MCV 96.5 H MCH 31.7 MCHC 32.9 RDW 13.1 Plt Count 191 MPV 8.4 Absolute Neuts (auto) 2.2 Neutrophils % 38.5 L Lymphocytes % 46.4 H Monocytes % 10.5 H Eosinophils % 3.9 Basophils % 0.7 Nucleated RBC % 0 Iron TIBC Iron Saturation Unsaturated IBC Transferrin Ferritin HOSPITAL COURSE: Date of Admission:04/03/19 Date of Discharge: 04/05/19 This is a pleasant 83 y/o woman with PMH significant for AF, DVT, GIB, HTN who presented to ED with SOB. She was found to have anterior TWI on ekg, elevated d- dimer, and elevated creatinine. The patient felt much better with fluid challenge. She had negative troponins, but persistently abnormal EKG with TWI. Moreover, on discussing with supervisor plastics, the patient gave a history suggestive of exertional symptoms, which were concerning. In light of her risk factors with abnormal EKG and concerning history, the decision was made to transfer her to [facility] for cath. Initial labs showed elevated recreation attendant, which resolved with fluids. Her AF was managed with home Diltiazem. She was not taking AC as an outpt, and this was maintained. Her HTN was managed with Lisinopril and Diltiazem. Pt was not anemic during her stay. Pt is stable for transfer. Minutes to complete discharge: 30 Discharge Summary Reason For Visit: SHORTNESS OF BREATH Condition: Stable - Instructions Diet, Activity, Other Instructions: GI follow up for possible GI bleed Disposition: TRANSFER ACUTE CARE/OTHER HOSP - Home Medications Comprehensive Discharge Medication List: Ambulatory Orders Aspirin [ASA -] 81 mg PO DAILY 12/28/17 Lisinopril [Prinivil] 10 mg PO DAILY tablet 12/31/17 B-Complex with Vitamin C [Super B Complex-Vitamin C] 1 each PO DAILY 04/03/19 Diltiazem HCl [Diltiazem 24Hr Cd] 180 mg PO DAILY 04/03/19 Multivitamins [Tab-A-Vit -] 1 tab PO DAILY 04/03/19 This patient is new to me today: No Emergency Visit: No Critical Care patient: No - Discharge Referral Referred to [facility] No ATTENDING PHYSICIAN STATEMENT I saw and evaluated the patient. I reviewed the resident's note and discussed the case with the resident. I agree with the resident's findings and plan as documented. SUBJECTIVE: OBJECTIVE: ASSESSMENT AND PLAN:
== END 2019-04-04 15:42 | disposition short-term general hospital (02) ==
LOC: JER 09:37 → INTOOBSV 11:27 → JERBED 11:27 → UNDOADMOB 11:27 → JERBED 16:23 → J4W 20:47
PROVIDERS: ADMIT Hospitalist; ATTEND Hospitalist
PROC: 3E0337Z Introduction of Electrolytic and Water Balance Substance into Peripheral Vein, Percutaneous Approach (ICD-10-PCS; principal; 2019-04-03)
DX: R94.31 Abnormal electrocardiogram [ECG] [EKG] (principal); N17.9 Acute kidney failure, unspecified; R06.02 Shortness of breath; I10 Essential (primary) hypertension; I11.9 Hypertensive heart disease without heart failure; I48.0 Paroxysmal atrial fibrillation; I49.5 Sick sinus syndrome; D64.9 Anemia, unspecified; E80.1 Porphyria cutanea tarda; E83.119 Hemochromatosis, unspecified; R01.1 Cardiac murmur, unspecified; R79.89 Other specified abnormal findings of blood chemistry; Z86.718 Personal history of other venous thrombosis and embolism; Z79.82 Long term (current) use of aspirin; Z95.1 Presence of aortocoronary bypass graft
CPT/HCPCS: 36415; 71045-TC-FY; 71275-TC; 80053; 82728; 83540; 83550; 83735; 83880; 84466; 84484; 85025; 85379; 85610; 85730; 93005; 93010; 93306-TC; 93971-TC; 99285-25; G0378; J7030

== ENCOUNTER 2019-04-09 01:06 | Inpatient (IN) | payer OTHER, BC | END 2019-04-16 11:40 | disposition home or self-care (01) | LOC: JER 01:06 → JERBED 05:01 → J8W 11:08 ==